=== PATIENT | female | born 1950 | race Caucasian/White ===

== ENCOUNTER 2023-06-21 15:36 | Outpatient (CLI) | payer MEDICARE, SELFPAY | END 2023-06-21 23:59 | LOC: RT 15:37 | PROVIDERS: PCP Nurse Practitioner; Visit Provider Nurse Practitioner Family | DX: R00.2 Palpitations (principal); R06.00 Dyspnea, unspecified; Z87.74 Personal history of (corrected) congenital malformations of heart and circulatory system; R60.0 Localized edema | CPT/HCPCS: 93270 ==

== ENCOUNTER 2023-09-20 06:11 | Outpatient (CLI) | payer MEDICARE, SELFPAY ==
--- NOTE | 2023-09-20 | CA_ITS ---
APPROVED REPORT Exam: Pharmacologic Technologist: Lolly Zhao, Ht: 5 ft 3 in Wt: 171 lbs BSA: 1.81 m2 HR: 58 bpm BP: 182/82 mmHg Rhythm: sinus bradycardia, low voltage QRS Medical History Medications: Lisinopril,,,,, Aspirin,,,,, Allopurinol,,,,, Pantoprazole,,,,, Metoprolol Succinate,,,,, TriaMterene,,,,, Potassium,,,,, Euthyrox,,,,, Cardiac Risk Factors: HTN Stress Test Details Test: LEXISCAN HR Resting HR: 58 bpm Max Heart Rate (APMHR): 149 bpm Max HR Achieved: 74 bpm Target HR (85% APMHR): 127 bpm % of APMHR: 50 Recovery HR: 67 bpm BP Resting BP: 182/82 mmHg Max BP: 207/81 mmHg Recovery BP: 167.0/82.0 mmHg ECG Resting ECG: sinus bradycardia, low voltage QRS Stress ECG: No significant ST changes Arrhythmia: None Clinical Exercise duration: 04:01 min Highest Stage Achieved: Exercise capacity: 1.0 METs Stress ECG Conclusion During lexiscan pt had no symptoms. No arrhythmias noted. No significant ST changes Conclusion: Unremarkable lexiscan stress. Myoview images reported separately. The patient was noted to have markedly elevated BP Test Summary REST . . . . . . . Sitting REST 15:58 . . 58 . 182/ 82 . . Stage 1 01:00 . . 71 . . . . Stage 2 01:00 . . 67 . 168/ 79 . . Stage 3 01:00 . . 64 . . . . Stage 4 01:00 . . 62 . 180/ 78 . . Stage 4 01:01 . . 62 . 180/ 78 . Stop exercise at 04:01 RECOVERY 01:00 . . 63 . 171/ 76 . . RECOVERY 02:00 . . 63 . 167/ 82 . . RECOVERY 03:00 . . 64 . 167/ 82 . . RECOVERY 04:00 . . 61 . 179/ 77 . . RECOVERY 04:18 . . 64 . 179/ 77 . . Electronically signed by : Rehana Dyer MD 09/25/2023 12:33:01
--- NOTE | 2023-09-20 06:15 | CA_ITS ---
APPROVED REPORT EXAM: Comprehensive 2D, Doppler, and color-flow Echocardiogram Dairy Chemist: Elda Zazueta CRT Ht: 5 ft 3 in Wt: 171lbs BSA: 1.81 BP: 138/75 mmHg Indications: Shortness of Breath, Palpitations, Fatigue, Peripheral Edema, Hypertension/HDD 2D Dimensions LA Volume 28.90 mL LA Volume Index 15.60 mL/m2 (M/F) 16-34 M-Mode Dimensions RVDd 2.96 cm (0.9-2.6) LA Diam 3.30 cm (1.9-4.0) LVDd 3.61 cm (3.5-5.7) LVDs 2.25 cm (3.5-5.7) IVSd 1.68 cm (0.6-1.1) PWd 0.86 cm (0.6-1.1) EF (Teich) 68.80% FS 37.70% EDV (Teich) 54.80 mL TAPSE 3.19 (<1.7) ESV (Teich) 17.10 mL LV Diastology E Decel Time 240 (160-240 msec) E/A Ratio 0.86 MED A' 8.60 cm/s LAT A' 12.80 cm/s Aortic Valve AI PHT 653.00 ms AO Peak GR. 4.70 mmHg Mitral Valve MV A Velocity 82.0 (40-130 cm/s) E/A Ratio 0.86 Pulmonary Valve PV Peak Velocity 94.0 (50-150 cm/s) Tricuspid Valve TR P. Velocity 260.00 cm/s RAP Estimate 10.00 mmHg RVSP 37.00 mmHg Left Ventricle The left ventricle is normal size. The left ventricular systolic function is normal. The left ventricular ejection fraction is within the normal range. Proximal septal thickening is noted. There is normal LV segmental wall motion. The left ventricular diastolic function is normal. LVEF is 55%. Right Ventricle Right ventricle is mildly dilated. The right ventricular systolic function is normal. Atria Left atrium is mildly dilated. Right atrium is mildly dilated. There is no Doppler evidence of interatrial shunt. Aortic Valve The aortic valve is mildly thickened. There is no aortic valvular stenosis. Mild aortic regurgitation. Mitral Valve The mitral valve leaflets are mildly thickened. No evidence of mitral valve stenosis. Mild mitral regurgitation. Tricuspid Valve The tricuspid valve leaflets are thin and pliable. Moderate tricuspid regurgitation. RVSP is 25-30 mmHg. Pulmonic Valve The pulmonary valve is normal in structure. Mild pulmonic regurgitation. Great Vessels The aortic root is normal in size. The ascending aorta is normal in size. IVC is normal in size and collapses >50% with inspiration. Pericardium There is no pericardial effusion. Other Information Study Quality: Fair Conclusion Normal biventricular systolic function. Mild RV dilation. Biatrial dilation. Mild AI, mild MR, mild WA. Moderate TR. Electronically signed by : Rehana Dyer MD 09/24/2023 17:59:08
--- OUTSIDE RECORDS SUMMARY | 2023-09-20 06:17 | XMS_ITS | Continuity of Care Document ---
Author Name Unknown Address [address] [place] [id number] Organization [facility] Phone Care Team Providers Care Ladle Handler Name Role Phone BRIDGETTE, PUSHPA E Unavailable Unavailable BRIDGETTE, PUSHPA E Admitting Unavailable BRIDGETTE, PUSHPA E Primary Attending Unavailable MAI VALENTIN Primary Care ALLERGIES AND ADVERSE REACTIONS ALLERGIES AND ADVERSE REACTIONS Code System Allergy Substance Adverse Reaction Date Reaction (Severity) Comment Status Reported By Updated By LATEX (Free Text Allergy) Adverse reaction to substance u active [id number] on September 06, 2023 11:38:40 PM UTC FAMILY HISTORY RELATION: Father Status: Cause of : Unknown Age at : Unknown SNOMED-CT Diagnosis Age At Onset [id number] Heart disease RELATION: Mother Status: LIVING SNOMED-CT Diagnosis Age At Onset [id number] Dementia RESULTS Patient: EDITA Antonio Date of : [birth year] LABORATORY RESULTS ORDER 100: RVP PANEL WITH CO VID 19 - BRBN (LOINC: 39029-6) ORDER DATE: September 06, 2023 11:44:00 PM UTC Specimen Source: Nasopharyng eal Specimen Type: Specimen from nasopharyngeal structure PERFORMING LAB: [address] [id number] Result Comment: Final Result Date: September 07, 2023 12:47:00 AM UTC (TECH: RJV) LOINC TEST [place] [address]-5 Adenovirus RNA [Pres ence] in Specimen by KYMBERLY with probe detection N NOT DETECTED NOT DETECTED September 07, 2023 12:47:00 AM UTC (TECH: RJV) 27810-6 Human coronavirus 22 9E RNA [Presence] in Nasopharynx by KYMBERLY with non-probe detection N NOT DETECTED NOT DETECTED September 07, 2023 12:47:00 AM UTC (TECH: RJV) 98542-3 Human coronavirus HK U1 RNA [Presence] in Nasopharynx by KYMBERLY with non-probe detection N NOT DETECTED NOT DETECTED September 07, 2023 12:47:00 AM UT (TECH: [facility] [employer]) 37323-6 Human coronavirus NL 63 RNA [Presence] in Nasopharynx by KYMBERLY with non-probe detection N NOT DETECTED NOT DETECTED September 07, 2023 12:47:00 AM UT (TECH: [facility]) 14277-7 Human coronavirus 229E+OC43 RNA [Presence] in Nasopharynx by KYMBERLY with probe detection N NOT DETECTED NOT DETECTED September 07, 2023 12:47:00 AM UTC (TECH: [facility]) 72815-5 SARS-CoV-2 (COVID-19 ) RNA [Presence] in Specimen by KYMBERLY with probe detection N NOT DETECTED NOT DETECTED August 272023 12:47:00 AM UT (TECH: [facility]) 10430-3 Human metapneumoviru s IgG Ab [Presence] in Serum N NOT DETECTED NOT DETECTED September 07, 2023 12:47:00 AM UT (TECH: [facility]) 31997-5 Rhinovirus+Enterovir us RNA [Presence] in Specimen by KYMBERLY with probe detection N NOT DETECTED NOT DETECTED August 272023 12:47:00 AM UT (TECH: [employer]) 31876-7 Influenza virus A Ab [Presence] in Serum N NOT DETECTED NOT DETECTED September 06 12:47:00 AM UT (TECH: [employer]) 58933-0 Influenza virus A+B Ab [Presence] in Serum N NOT DETECTED NOT DETECTED September 06 12:47:00 AM UT (TECH: [facility]) 01137-3 Parainfluenza virus 1 IgG Ab [Presence] in Serum N NOT DETECTED NOT DETECTED September 07, 2023 12:47:00 AM UTC (TECH: [employer]) 55406-2 Parainfluenza virus 2 IgG Ab [Presence] in Serum N NOT DETECTED NOT DETECTED September 07, 2023 12:47:00 AM UTC (TECH: [employer]) 53905-5 Parainfluenza virus 3 IgG Ab [Presence] in Serum N NOT DETECTED NOT DETECTED September 07, 2023 12:47:00 AM UTC (TECH: [facility]as[facility]) 40131-0 Parainfluenza virus 4 IgG Ab [Presence] in Serum by Immunoassay N NOT DETECTED NOT DETECTED September 07, 2023 12:47:00 AM UT (TECH: [facility]) 21092-1 Respiratory syncytia l virus A RNA [Presence] in Nasopharynx by KYMBERLY with probe detection N NOT DETECTED NOT DETECTED September 07, 2023 12:47:00 AM [facility] (TECH: Talasim) 07686-0 Bordetella parapertu ssis DNA [Presence] in Nasopharynx by KYMBERLY with probe detection N NOT DETECTED NOT DETECTED September 07, 2023 12:47:00 AM [facility] ([facility]: Talasim) 19110-5 Bordetella pertussis DNA [Presence] in Specimen by KYMBERLY with probe detection N NOT DETECTED NOT DETECTED August 272023 12:47:00 AM [facility] ([facility]: Talasim) 11420-9 Chlamydophila pneumo niae DNA [Presence] in Specimen by KYMBERLY with probe detection N NOT DETECTED NOT DETECTED September 07, 2023 12:47:00 AM UT (TECH: [facility]) 55582-2 Mycoplasma pneumonia e Ab [Presence] in Serum N NOT DETECTED NOT DETECTED September 06 12:47:00 AM [facility] (TECH: [facility]) LABORATORY NARRATIVE RESULTS Information is not available RADIOLOGY RESULTS Information is not available PATHOLOGY NARRATIVE RESULTS Information is not available MICROBIOLOGY RESULTS No Micro Labs/Results Exist for Patient BLOOD ADMIN RESULTS Information is not available MEDICATIONS HOME MEDICATIONS Status RXNORM NDC Medication Dose Route Frequency Dates Comments Reported By Updated By Drug Treatment Unknown DISCHARGE MEDICATIONS Status RXNORM NDC Medication Dose Route Frequency Dates Comments Physician Updated By No Discharge Medication Info rmation Available INPATIENT MEDICATIONS Status RXNORM NDC Medication Dose Route Frequency Rat e Quantity Dates Comments Physician Updated By No Inpatient Medication Info rmation Available SOCIAL HISTORY SOCIAL HISTORY SNOMED-CT Social History Element Description Effective Dates Offered Cessation Comment UpdatedBy [id number] Historical Tobacco smoking status Never Smoked Yes [id number] on September 21, 2018 2:58:33 PM [facility] SOCIAL HISTORY - Gender Sex: Female SOCIAL HISTORY - Status : status i nformation is not available Intention in Next Year: intention information is not available SOCIAL HISTORY - Sexual Behavior Sexual Orientation Gender Identity SNOMED-CT Description SNO MED -CT Description Activity Level No of Partners Partner Type UpdatedBy Information is not available VITAL SIGNS PATIENT VITAL SIGNS This section displays the mo st recent value for each vital sign as of September 08, 2023 12:38:17 PM UTC Loinc Code Vital Sign Activity Date Result Updated By 8310-5 Body temperature September 06, 2023 11:34:37 PM UTC 98.0 [degF] [id number] on September 08, 2023 1:02:21 AM UTC 8462-4 Diastolic blood pressure September 07, 2023 1:00:53 AM UTC 77.0 mm[Hg] [id number] on September 08, 2023 1:02:23 AM UTC 8867-4 Heart rate September 07, 2023 1:00:53 AM UTC 60 /min [id number] on September 08, 2023 1:02:23 AM UTC 44603-8 Oxygen saturation in Arterial blood by Pulse oximetry September 07, 2023 1:00:53 AM UTC 99.0 % [id number] on September 08, 2023 1:02:23 AM UTC 9279-1 Respiratory rate September 07, 2023 1:00:53 AM UTC 18 /min [id number] on September 08, 2023 1:02:23 AM UTC 8480-6 Systolic blood pressure August 1:00:53 AM UTC 189.0 mm[Hg] [id number] on September 08, 2023 1:02:23 AM UT PEDIATRIC GROWTH CHART - VITAL SIGNS This section displays Head C ircumference Percentile, Weight for Length Percentile and BMI Percentile Loinc Code Pediatric Measure Age (Months) Result Updat ed By No Pediatric Growth Chart Pe rcentile Information Available. HEALTH CONCERNS Problems Concern Status Health Concern problem infor mation not available. Smoking Status Status Years Used Consumed packs p er day Health Concern smoking histo ry information not available. Family History Concern Status Health Concern family histor y information not available. ENCOUNTERS ENCOUNTER INFORMATION Reason for Visit SORE THROAT Admission September 06, 2023 11:15:00 PM UTC [address] [address] Discharge September 07, 2023 1:02:00 AM UTC DI SCHARGED TO HOME OR SELF CARE ENCOUNTER DIAGNOSES Notes information is not olivia ilable. Code System Diagnosis Onset Date Diagnosis information is not available. ABSTRACT DIAGNOSES Code System Diagnosis Updated By J02.9 ICD10 ACUTE PHARYNGITIS, UNSPECIFI ED [id number] on September 08, 2023 12:37:57 PM UTC B34.9 ICD10 VIRAL INFECTION, UNSPECIFIED [id number] on September 08, 2023 12:37:57 PM UTC I10 ICD10 ESSENTIAL (PRIMARY) HYPERTEN JOHN [id number] on September 08, 2023 12:37:57 PM UTC Z11.52 ICD10 ENCOUNTER FOR SCREENING FOR COVID-19 [id number] on September 08, 2023 12:37:57 PM UTC Z91.040 ICD10 LATEX ALLERGY STATUS [id number] on September 08, 2023 12:37:57 PM UTC CARE TEAM Care Ladle Handler Role PUSHPA ANGELES Referring PUSHPA ANGELES Admitting PUSHPA ANGELES Primary Attending MAI VALENTIN Primary Care CARE TEAM CARE clearing distribution clerk Role on Team Status Start Date End Date Update d By BRIDGETTE Leal MD Referring normal September 05 11:46:09 PM UT September 06, 2023 4:00:00 AM UTC [id number] on September 06, 2023 11:46:09 PM UT BRIDGETTE Leal MD Attending normal September 05 11:46:08 PM UT September 06, 2023 4:00:00 AM UTC [id number] on September 06, 2023 11:46:09 PM UT BRIDGETTE Leal MD Admitting normal September 05 11:46:08 PM UT September 06, 2023 4:00:00 AM UTC [id number] on September 06, 2023 11:46:09 PM UT HOMERO ONEILL APRN PCP normal September 06, 2023 11:16:40 PM UTC September 06, 2023 4:00:00 AM UTC [id number] on September 06, 2023 11:46:09 PM UTC
--- OUTSIDE RECORDS SUMMARY | 2023-09-20 06:17 | XMS_ITS | Continuity of Care Document ---
Author Name Unknown Address [address] [place] [phone] Organization [facility] Phone Care Team Providers Care Bread Panner Name Role Phone MAI VALENTIN Primary Care MAI VALENTIN Unavailable MAI VALENTIN Primary Attending MAI VALENTIN Admitting ALLERGIES AND ADVERSE REACTIONS ALLERGIES AND ADVERSE REACTIONS Code System Allergy Substance Adverse Reaction Date Reaction (Severity) Comment Status Reported By Updated By LATEX (Free Text Allergy) Adverse reaction to substance u active [id number] on March 30, 2021 10:22:24 PM [facility] FAMILY HISTORY RELATION: Father Status: Cause of : Unknown Age at : Unknown SNOMED-CT Diagnosis Age At Onset [id number] Heart disease RELATION: Mother Status: LIVING SNOMED-CT Diagnosis Age At Onset [id number] Dementia RESULTS Patient: EDITA Antonio Date of : January [birth year] LABORATORY RESULTS Information is not available LABORATORY NARRATIVE RESULTS Information is not available RADIOLOGY RESULTS ORDER 200: SCREEN MAMMO W CA D BILAT (LOINC: 02008-1) ORDER DATE: June 26, 2023 4:31:00 PM [facility] PERFORMING LAB: [address] [id number] Final Result Date: May 302023 4:40:[address] [place] [address] Name: TREVOR KOHLER Exam Date: 06/26/2023 : 1950 Age 73 years Gender: F Physician: MAI VALENTIN Facility: [facility] Facility HSV: Outpatient Exam: SCREEN MAMMO W CAD BILAT MAMMOGRAM SCREENING BILATERAL WITH TOMOSYNTHESIS HISTORY: Routine screening exam COMPARISON: February 24, 2022 FINDINGS: Standard views were obtained. There are scattered fibroglandular densities. No mass, suspicious calcifications or architectural distortion is present. IMPRESSION: No mammographic evidence of malignancy. BI-RADS 1: Negative. RECOMMENDATION: Annual mammography CAD was utilized during interpretation. The patient will be sent a letter from the mammography department with their mammography findings. Dictated By: LACY GEE Transcribed By: LACY GEE Transcribed On: 06/26/2023 11:40 AM Electronically signed by: LACY GEE 06/26/2023 Thank you for referring EDITA TREVOR to [facility]. Legally authenticated by POPE LACY Galicia DO 2023-06-26 11:40:09 PATHOLOGY NARRATIVE RESULTS Information is not available MICROBIOLOGY RESULTS No Micro Labs/Results Exist for Patient BLOOD ADMIN RESULTS Information is not available MEDICATIONS HOME MEDICATIONS Status RXNORM Medication Dose Route Frequency Dates Comments R eported By Updated By Drug Treatment Unknown DISCHARGE MEDICATIONS Status RXNORM Medication Dose Route Frequency Dates Comments Physic roland Updated By No Discharge Medication Info rmation Available INPATIENT MEDICATIONS Status RXNORM Medication Dose Route Frequency Rate Quantity Dates Comments Physician Updated By No Inpatient Medication Info rmation Available SOCIAL HISTORY SOCIAL HISTORY SNOMED-CT Social History Element Description Effective Dates Offered Cessation Comment UpdatedBy [id number] Historical Tobacco smoking status Never Smoked Yes [id number] on September 21, 2018 2:58:33 PM [facility] SOCIAL HISTORY - Gender Sex: Female SOCIAL HISTORY - Sexual Behavior Sexual Orientation Gender Identity SNOMED-CT Description SNO MED -CT Description Activity Level No of Partners Partner Type UpdatedBy Information is not available HEALTH CONCERNS Problems Concern Status Health Concern problem infor mation not available. Smoking Status Status Years Used Consumed packs p er day Health Concern smoking histo ry information not available. Family History Concern Status Health Concern family histor y information not available. ENCOUNTERS ENCOUNTER INFORMATION Reason for Visit SCR LEILA Admission June 26, 2023 4:08:[address] [address] Discharge June 27, 2023 4:08:00 AM [facility] DISCHARGED TO HOME OR SELF CARE ENCOUNTER DIAGNOSES Notes information is not olivia ilable. Code System Diagnosis Onset Date Diagnosis information is not available. ABSTRACT DIAGNOSES Code System Diagnosis Updated By Z12.31 ICD10 ENCOUNTER FOR SC REENING MAMMOGRAM FOR MALIGNANT NEOPLASM OF BREAST [id number] on June 23, 2023 7:25:01 PM [facility] CARE TEAM Care Bread Panner Role MAI VALENTIN Primary Care MAI VALENTIN Referring MAI VALENTIN Primary Attending MAI VALENTIN Admitting CARE TEAM CARE journalism internship Role on Team Status Start Date End Date Update d By HOMERO ONEILL APRN PCP normal June 26, 2023 4:10:49 PM [place] June 27, 2023 4:08:00 AM [facility] [id number] on June 26, 2023 4:10:49 PM [facility] LISA GOLD PCP normal May 7:25:01 PM [facility] June 26, 2023 4:10:49 PM [facility] [id number] on June 26, 2023 4:10:49 PM [facility] HOMERO ONEILL APRN Referring normal June 23, 2023 7:25:01 PM [place] June 27, 2023 4:08:00 AM [facility] [id number] on June 26, 2023 4:10:49 PM [facility] HOMERO ONEILL APRN Attending normal June 23, 2023 7:25:01 PM [facility] June 27, 2023 4:08:00 AM [facility] [id number] on June 26, 2023 4:10:49 PM [facility] HOMERO ONEILL APRN Admitting normal June 23, 2023 7:25:01 PM [facility] June 27, 2023 4:08:00 AM [facility] [id number] on June 26, 2023 4:10:49 PM [facility]
--- OUTSIDE RECORDS SUMMARY | 2023-09-20 06:17 | XMS_ITS | Continuity of Care Document ---
Author Name Unknown Address [address] [place] [phone] Organization [facility] Phone Care Team Providers Care Nursing Home Physician Name Role Phone BRIDGETTE, PUSHPA E Unavailable Unavailable BRIDGETTE, PUSHPA E Admitting Unavailable BRIDGETTE, PUSHPA E Primary Attending Unavailable MAI VALENTIN Primary Care ALLERGIES AND ADVERSE REACTIONS ALLERGIES AND ADVERSE REACTIONS Code System Allergy Substance Adverse Reaction Date Reaction (Severity) Comment Status Reported By Updated By LATEX (Free Text Allergy) Adverse reaction to substance u active [id number] on September 06, 2023 11:38:40 PM UTC FAMILY HISTORY RELATION: Father Status: Cause of : Unknown Age at : Unknown SNOMED-CT Diagnosis Age At Onset [id number] Heart disease RELATION: Mother Status: LIVING SNOMED-CT Diagnosis Age At Onset [id number] Dementia RESULTS Patient: EDITA Antonio Date of : [birth year] LABORATORY RESULTS ORDER 100: RVP PANEL WITH CO VID 19 - BRBN (LOINC: 64123-1) ORDER DATE: September 06, 2023 11:44:00 PM UTC Specimen Source: Nasopharyng eal Specimen Type: Specimen from nasopharyngeal structure PERFORMING LAB: [address] [id number] Result Comment: Final Result Date: September 07, 2023 12:47:00 AM UTC (TECH: RJV) LOINC TEST [place] [address]-9 Adenovirus RNA [Pres ence] in Specimen by KYMBERLY with probe detection N NOT DETECTED NOT DETECTED September 07, 2023 12:47:00 AM UTC (TECH: RJV) 75116-3 Human coronavirus 22 9E RNA [Presence] in Nasopharynx by KYMBERLY with non-probe detection N NOT DETECTED NOT DETECTED September 07, 2023 12:47:00 AM UTC (TECH: RJV) 64964-1 Human coronavirus HK U1 RNA [Presence] in Nasopharynx by KYMBERLY with non-probe detection N NOT DETECTED NOT DETECTED September 07, 2023 12:47:00 AM UT (TECH: AsantiV) 36388-6 Human coronavirus NL 63 RNA [Presence] in Nasopharynx by KYMBERLY with non-probe detection N NOT DETECTED NOT DETECTED September 07, 2023 12:47:00 AM UT (TECH: BiancaMed) 61692-2 Human coronavirus 229E+OC43 RNA [Presence] in Nasopharynx by KYMBERLY with probe detection N NOT DETECTED NOT DETECTED September 07, 2023 12:47:00 AM UTC (TECH: BiancaMed) 21265-9 SARS-CoV-2 (COVID-19 ) RNA [Presence] in Specimen by KYMBERLY with probe detection N NOT DETECTED NOT DETECTED August 272023 12:47:00 AM UT (TECH: [facility]caMed) 56420-6 Human metapneumoviru s IgG Ab [Presence] in Serum N NOT DETECTED NOT DETECTED September 07, 2023 12:47:00 AM UT (TECH: [facility]ca[facility]) 43240-7 Rhinovirus+Enterovir us RNA [Presence] in Specimen by KYMBERLY with probe detection N NOT DETECTED NOT DETECTED August 272023 12:47:00 AM UT (TECH: AsantiV) 25007-1 Influenza virus A Ab [Presence] in Serum N NOT DETECTED NOT DETECTED September 06 12:47:00 AM UT (TECH: AsantiV) 24590-3 Influenza virus A+B Ab [Presence] in Serum N NOT DETECTED NOT DETECTED September 06 12:47:00 AM UT (TECH: [facility]) 23483-8 Parainfluenza virus 1 IgG Ab [Presence] in Serum N NOT DETECTED NOT DETECTED September 07, 2023 12:47:00 AM UTC (TECH: AsantiV) 81604-1 Parainfluenza virus 2 IgG Ab [Presence] in Serum N NOT DETECTED NOT DETECTED September 07, 2023 12:47:00 AM UTC (TECH: AsantiV) 20819-4 Parainfluenza virus 3 IgG Ab [Presence] in Serum N NOT DETECTED NOT DETECTED September 07, 2023 12:47:00 AM UTC (TECH: [facility]ca[facility]) 50116-6 Parainfluenza virus 4 IgG Ab [Presence] in Serum by Immunoassay N NOT DETECTED NOT DETECTED September 07, 2023 12:47:00 AM UT (TECH: [facility]) 58978-1 Respiratory syncytia l virus A RNA [Presence] in Nasopharynx by KYMBERLY with probe detection N NOT DETECTED NOT DETECTED September 07, 2023 12:47:00 AM [facility] (TECH: BiancaMed) 92408-3 Bordetella parapertu ssis DNA [Presence] in Nasopharynx by KYMBERLY with probe detection N NOT DETECTED NOT DETECTED September 07, 2023 12:47:00 AM [facility] ([employer]: [facility]ca[facility]) 82252-7 Bordetella pertussis DNA [Presence] in Specimen by KYMBERLY with probe detection N NOT DETECTED NOT DETECTED August 272023 12:47:00 AM [facility] ([employer]: [employer]) 84733-0 Chlamydophila pneumo niae DNA [Presence] in Specimen by KYMBERLY with probe detection N NOT DETECTED NOT DETECTED September 07, 2023 12:47:00 AM UT (TECH: [employer]) 50878-5 Mycoplasma pneumonia e Ab [Presence] in Serum N NOT DETECTED NOT DETECTED September 06 12:47:00 AM [facility] (TECH: [facility]) LABORATORY NARRATIVE RESULTS Information is not available [...] Description Effective Dates Offered Cessation Comment UpdatedBy [id number] Historical Tobacco smoking status Never Smoked Yes [id number] on September 21, 2018 2:58:33 PM [facility] SOCIAL HISTORY - Gender Sex: Female SOCIAL [...] for each vital sign as of September 07, 2023 2:07:08 AM UTC Loinc Code Vital Sign Activity Date Result Updated By 8310-5 Body temperature September 06, 2023 11:34:00 PM UTC 98.0 [degF] [id number] on September 06, 2023 11:36:32 PM UTC 8462-4 Diastolic blood pressure September 07, 2023 1:00:00 AM UTC 77.0 mm[Hg] [id number] on September 07, 2023 1:01:24 AM UTC 8867-4 Heart rate September 07, 2023 1:00:00 AM UTC 60 /min [id number] on September 07, 2023 1:01:24 AM UTC 20355-1 Oxygen saturation in Arterial blood by Pulse oximetry September 07, 2023 1:00:00 AM UTC 99.0 % [id number] on September 07, 2023 1:01:24 AM UTC 9279-1 Respiratory rate September 07, 2023 1:00:00 AM UTC 18 /min [id number] on September 07, 2023 1:01:24 AM UTC 8480-6 Systolic blood pressure August 1:00:00 AM UTC 189.0 mm[Hg] [id number] on September 07, 2023 1:01:24 AM [place] PEDIATRIC GROWTH CHART - VITAL [...] September 06, 2023 11:15:00 PM UTC [address] [id number] Discharge September 07, 2023 1:02:00 AM UTC DI SCHARGED TO HOME OR SELF CARE ENCOUNTER DIAGNOSES Notes information is not olivia ilable. Code System Diagnosis Onset Date Diagnosis information is not available. ABSTRACT DIAGNOSES Code System Diagnosis Updated By Abstract Diagnosis informati on is not available. 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 Role on Team Status Start Date End Date Update d By BRIDGETTE Leal MD Referring normal September 05 11:46:09 PM UT September 07, 2023 1:02:00 AM UT [id number] on September 06, 2023 11:46:09 PM UT BRIDGETTE Leal MD Attending normal September 05 11:46:08 PM UT September 07, 2023 1:02:00 AM [facility] [id number] on September 06, 2023 11:46:09 PM UT BRIDGETTE Leal MD Admitting normal September 05 11:46:08 PM UT September 07, 2023 1:02:00 AM UT [id number] on September 06, 2023 11:46:09 PM [facility] HOMERO ONEILL APRN PCP normal September 06, 2023 11:16:40 PM UT September 07, 2023 1:02:00 AM UT [id number] on September 06, 2023 11:46:09 PM [facility]
--- OUTSIDE RECORDS SUMMARY | 2023-09-20 06:17 | XMS_ITS | Continuity of Care Document ---
Author Name Unknown Address [address] [place] [phone] Organization [facility] Phone Care Team Providers Care Block Inspector Name Role Phone MAI VALENTIN Primary Care MAI VALENTIN Unavailable MAI VALENTIN Primary Attending MAI VALENTIN Admitting ALLERGIES AND ADVERSE REACTIONS ALLERGIES AND ADVERSE REACTIONS Code System Allergy Substance Adverse Reaction Date Reaction (Severity) Comment Status Reported By Updated By LATEX (Free Text Allergy) Adverse reaction to substance u active [id number] on March 30, 2021 10:22:[address] [facility] FAMILY HISTORY RELATION: Father Status: Cause of : Unknown Age at : Unknown SNOMED-CT Diagnosis Age At Onset [id number] Heart disease RELATION: Mother Status: LIVING SNOMED-CT Diagnosis Age At Onset [id number] Dementia RESULTS Patient: EDITA Antonio Date of : January [birth year] LABORATORY RESULTS Information is not available LABORATORY NARRATIVE RESULTS Information is not available RADIOLOGY RESULTS ORDER 200: SCREEN MAMMO W CA D BILAT (LOINC: 62696-0) ORDER DATE: June 26, 2023 4:31:[address] [facility] PERFORMING LAB: [address] [id number] Final Result Date: May 302023 4:40:[address] [place] [address] Name: TREVOR KOHLER Exam Date: 06/26/2023 : 1950 Age 73 years Gender: F Physician: MAI VALENTIN Facility: [facility] Facility HSV: Outpatient Exam: SCREEN MAMMO W [...] Thank you for referring EDITA TREVOR to [facility]. Legally authenticated by POPE LACY [...] Description Effective Dates Offered Cessation Comment UpdatedBy [id number] Historical Tobacco smoking status Never Smoked Yes [id number] on September 21, 2018 2:58:[address] [facility] SOCIAL HISTORY - Gender Sex: Female [...] LEILA Admission June 26, 2023 4:08:[address] [id number] Discharge June 27, 2023 4:08:[address] [facility] DISCHARGED TO HOME OR SELF CARE ENCOUNTER DIAGNOSES Notes information is not olivia ilable. Code System Diagnosis Onset Date Diagnosis information is not available. 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 LISA GOLD PCP normal May 7:25:[address] [facility] June 26, 2023 4:10:49 PM UT [id number] on June 26, 2023 4:10:[address] [facility] HOMERO ONEILL APRN Referring normal June 23, 2023 7:25:01 PM UT June 26, 2023 5:00:00 AM UT [id number] on June 26, 2023 4:10:[address] [facility] HOMERO ONEILL APRN Attending normal June 23, 2023 7:25:[address] [facility] June 26, 2023 5:00:00 AM UT [id number] on June 26, 2023 4:10:[address] [facility] HOMERO ONEILL APRN Admitting normal June 23, 2023 7:25:[address] [facility] June 26, 2023 5:00:00 AM UT [id number] on June 26, 2023 4:10:[address] [facility]
--- NOTE | 2023-09-20 06:34 | NM_ITS ---
APPROVED REPORT Exam: Nuclear Stress Test Indication: SOB, Syncope, Fatigue, HTN, Family history Patient Location: Outpatient Stress Tech: Lolly Zhao NM Tech:Ariana Murillo, ARRT, RT (R)(N) Ht: 5 ft 4 in Wt: 168 lbs Bra Size: 38C HR: 58 bpm BP: 182/82 mmHg BSA: 1.82 m2 TID: 1.19 BMI: 28.8 History: SOB, Syncope, Fatigue, HTN, Family history Procedure: Patient received 0.4 mg of intravenous Lexiscan, resting heart rate 58 bpm, resting blood pressure 182/82 mmHg, with Lexiscan maximum heart rate achieved was 74 bpm which is % of the maximum predicted heart rate and blood pressure was 207/81 mmHg. With Lexiscan, patient denied any complaint of chest pain. Cardiac Stress and Resting SPECT Images: Cardiac Stress and Resting SPECT images were obtained using technetium 99m Myoview 31.4 mCi stress and 10.59 mCi at rest. Resting and stress imaging in supine and prone positions demonstrate no evidence of fixed or reversible perfusion defects. Gated imaging demonstrates normal global and regional LV systolic function. LVEF is calculated at > 75%. Conclusion: No evidence of fixed or reversible perfusion defects. Gated imaging demonstrates normal global and regional LV systolic function. LVEF is calculated at > 75%. Of note patient had markedly elevated BP at baseline during stress testing. BP control is recommended. Electronically signed by : Rehana Dyer MD 09/25/2023 12:35:37
[2023-09-20] MEDS: REGADENOSON 0.4MG/5ML SYRINGE 0.400000000000000022 MG IV (08:52)
[2023-09-20] MEDS: SODIUM CHLORIDE 0.9% 10ML SYR (RAD ONLY) 10 ML IV ×2 (08:52)
[2023-09-20] MEDS: ISOTOPE MYOVIEW (PER STUDY) 1 DOSE IV (08:53)
== END 2023-09-20 23:59 | disposition home or self-care (01) ==
LOC: RAD 06:15
PROVIDERS: PCP Nurse Practitioner; Visit Provider Nurse Practitioner Family
DX: R06.00 Dyspnea, unspecified; R00.2 Palpitations; Z87.74 Personal history of (corrected) congenital malformations of heart and circulatory system; R60.0 Localized edema
CPT/HCPCS: 78452; 93017; 93018; 93306; A9502; J2785

== ENCOUNTER 2024-04-29 10:02 | Outpatient (CLI) | payer MEDICARE, SELFPAY ==
--- OUTSIDE RECORDS SUMMARY | 2024-04-29 10:04 | XMS_ITS | Encounter Summary ---
Author Organization [facility] yste Address [address] [place] [address] Care Team Providers Care Career Portals Teacher Name Role Phone Jo Ann Byrd [employer] Primary Care Provider [phone] Reason for Visit * Reason Onset Date Comments New Med Request 04/12/2024 Encounter Details Date Type Department Care Team (Late st Contact Info) Description 04/12/2024 Telephone [facility] [address] [place] [phone] Jo Ann Byrd, [employer] [address] [place] [address] New Med Request Social History Tobacco Use Types Packs/Day Years Used Date Smoking Tobacco: Never Smokeless Tobacco: Never Alcohol Use Standard Drinks/Week Comments Never 0 (1 standard drink = 0.6 oz pur e alcohol) PHQ-2 Answer Date Recorded Retired PHQ-9: Brief Depression Severity Measure Score 0 12/30/2022 PHQ-2 Answer Date Recorded Retired PHQ-9: Brief Depression Severity Measure Score 0 09/12/2023 Comments Unknown Sex and Gender Information Value Date Recorded Sex Assigned at Not on file Legal Sex Female 10:58 AM EDT Gender Identity Not on file Sexual Orientation Not on file documented as of this encounter Miscellaneous Notes * Telephone Encounter - Brandi Diaz MA - 04/12/2024 4:13 PM EST Called and spoke with patient and she wants to make an appointment * Telephone Encounter - Efra Anderson RegSched Rep - 04/12/2024 2:02 PM EST Caller: Sharri Lawrence Relationship: Self Best call back number: [phone] What medication are you requesting: MAYBE A STEROID What are your current symptoms: INFECTION IN LEG How long have you been experiencing symptoms: SINCE LAST MONDAY Have you had these symptoms before: [x] Yes [] No Have you been treated for these symptoms before: [x] Yes [] No If a prescription is needed, what is your preferred pharmacy and phone number: [facility] [address] [place] [address] [facility] [phone] FX documented in this encounter Plan of Treatment Not on file documented as of this encounter Visit Diagnoses Not on filedocumented in this encounter Care Teams Career Portals Teacher Relationship Specialty Start Date End Date Jo Ann Byrd APRN [address] [place] [address] PCP - General Family Medicine 12/30/22 documented as of this encounter
--- OUTSIDE RECORDS SUMMARY | 2024-04-29 10:04 | XMS_ITS | Encounter Summary ---
[facility] Address [address] [place] [address] Care Team Providers Care Lollypop Machine Operator Name Role Phone Jo Ann Byrd [employer] Primary Care Provider [phone] Reason for Visit * Reason Onset Date Comments Med Refill 04/02/2024 Encounter Details Date Type Department Care Team (Late st Contact Info) Description 04/02/2024 Refill [facility] [address] [place] [phone] Jo Ann Byrd, MARGIN TRIMMER [address] [place] [address] Social History Tobacco Use Types Packs/Day Years [...] encounter Miscellaneous Notes * Telephone Encounter - Nj Mata RegSched Rep - 04/02/2024 10:50 AM EST Caller: Sharri Lawrence Relationship: Self Best call back number: [phone] Requested Prescriptions: Requested Prescriptions Pending Prescriptions Disp Refills triamterene-hydrochlorothiazide (MAXZIDE) 75-50 MG per tablet Sig: Take 0.5 tablets by mouth Daily. Pharmacy where request should be sent: [facility] [address] [place] [address] - [phone] [facility] [phone] FX Last office visit with prescribing clinician: 03/07/2024 Last telemedicine visit with prescribing clinician: Visit date not found Next office visit with prescribing clinician: Visit date not found Additional details provided by patient: PATIENT IS COMPLETELY OUT OF THIS MEDICATION Does the patient have less than a 3 day supply: [x] Yes [] No Would you like a call back once the refill request has been completed: [] Yes [x] No If the office needs to give you a call back, can they leave a voicemail: [] Yes [x] No Saleem Sahni Rep 04/02/24 10:51 EST documented in this encounter Plan of Treatment Not on file documented as of this encounter Visit Diagnoses Not on filedocumented in this encounter Care Teams Lollypop Machine Operator Relationship Specialty Start Date End Date Jo Ann Byrd APRN [address] [place] [address] PCP - General Family Medicine 12/30/22 documented as of this encounter
--- OUTSIDE RECORDS SUMMARY | 2024-04-29 10:04 | XMS_ITS | Clinical Summary ---
[facility] Address [address] [place] [address] Care Team Providers Care Retail Route Supervisor Name Role Phone Jo Ann Byrd Yuliet ZAMORA Primary Care Provider Allergies Active Allergy Reactions Criticality Noted Date Comments Latex Rash Low 12/30/2022 Medications allopurinol (ZYLOPRIM) 300 MG tablet Take 1 tablet by mouth Daily. 90 tablet 1 4 Active metoprolol succinate XL (TOPROL-XL) 25 MG 24 hr tablet Take 1 tablet by mouth Daily. 90 tablet 1 4 Active aspirin 81 MG EC tablet Take 1 tablet by mouth Daily. 90 tablet 1 4 Active lisinopril (PRINIVIL,ZESTR IL) 10 MG tablet Take 1 tablet by mouth Daily. 90 tablet 1 4 Active potassium chloride (KLOR-CON M20) 20 MEQ CR tablet Take 1 tablet by mouth Daily. 90 tablet 1 4 Active triamcinolone (KENALOG) 0.1 % ointment Apply topically to the appropriate area as directed 2 (Two) Times a Day. 3 each 1 4 Active levothyroxine (SYNTHROID, LEVOTHROID) 75 MCG tablet Take 1 tablet by mouth Daily. 90 tablet 2 4 Active pantoprazole (PROTONIX) 40 MG EC tabletIndicatio ns:Gastroesopha geal reflux disease without esophagitis Take 1 tablet by mouth twice daily 180 tablet 1 4 Active triamterene-hyd rochlorothiazid e (MAXZIDE) 75-50 MG per tablet Take 0.5 tablets by mouth Daily. 15 tablet 2 4 Active triamterene-hyd rochlorothiazid e (MAXZIDE) 75-50 MG per tablet Take 0.5 tablets by mouth Daily. 024 Discontin ued(Reord er) Active Problems Problem Noted Date Diagnosed Date Varicose veins of bilateral lower extremities wi th pain 04/15/2024 Assessment & Plan (04/17/2024 5:09 PM EST): Patient has well-documented history of issues with varicose veins of the bilateral lower extremities. SHe has had episodes of rupture . With past episodes she has also been noted to have superficial thrombophlebitis as well. Patient states her current episode has actually resolved at the time of evaluation but she felt it would best to come and have it evaluated. No concerning findings on physical exam today, however with past history of thrombophlebitis will send for left lower extremity duplex to rule out any underlying DVT issues. We discussed referral to vascular that she declines at this time but will keep in mind Hamstring strain, left, initial encounter 2023 Assessment & Plan (03/12/2024 3:41 PM EDT): Appears the patient suffered a right hamstring sprain or strain while doing a lot of physical labor in preparation for a yard sale. Her issue responded well to cold compress and NSAID therapy at home. No concerning lingering findings on physical exam, patient states that her numbness and aching have completely resolved. If issues should return would benefit from ultrasound given history of DVT. History of esophageal stricture 11/29/2023 Assessment & Plan (12/01/2023 8:03 AM EDT): presents today for issues with indigestion for a week or week and a half. She has been having issues swallowing as well. She feels like food is getting stuck in her throat, very predominant with bread, patient states that she does not eat very much meat. She has required esophageal dilatation during EGD on 3 previous occasions. -Refer to Dr. Steele Medicare annual wellness visit, subsequent 09/11 Assessment & Plan (09/12/2023 1:29 PM EDT): Patient up to date on mammography and colon cancer screening. She continues to be followed regularly by Dr. Montez, Cardiology after undergoing repair of interatrial septal defect approximately 10 years ago. Declines any updated vaccinations including COVID, Tdap, RSV or shingles. He has no complaints or concerns today Gastroesophageal reflux disease without esophagi tis 09/12/2023 Assessment & Plan (12/01/2023 8:02 AM EDT): presents today for issues with indigestion for a week or week and a half. She has been having issues swallowing as well. She feels like food is getting stuck in her throat, very predominant with bread, patient states that she does not eat very much meat. Describes her indigestion as feelings of heartburn and epigastric bubbling sensation. She states that she has always been a water drinker, but recently even water is making her nauseous. She is currently utilizing pantoprazole 40 mg once daily. She Has required esophageal dilatation during EGD on 3 previous occasions. Patient denies any vomiting, diarrhea, abdominal pain, chest pain or shortness of breath. No epigastric or abdominal tenderness on palpation, no abnormal physical exam findings. -Temporarily increase patient's pantoprazole to 40 mg twice daily -Has been treated by Dr. Astorga in the past who is currently not practicing, will refer to Dr. Steele for likely EGD in regards to feelings of possible dysphagia as well Assessment & Plan (09/12/2023 1:29 PM EDT): Well-controlled with daily pantoprazole Muscle cramps 02/14/2023 Assessment & Plan (02/15/2023 8:12 AM EDT): presents today for nocturnal muscle cramps. Patient noticed waking up with bilateral cramping of calf muscles in the middle the night approximately 1 to 2 months ago. This coincided with increased physical labor she had been doing due to her being down his back. The cramping is always at night during sleep, no pain or discomfort with long periods of standing or walking. No swelling or erythema of bilateral lower extremities. She denies any occurrence chest pain or shortness of breath. During our visit she endorses drinking predominantly Mtn Dew, not much water intake even on hotter days when she is outside working in the yard. She does not take any daily supplements. Normal physical exam -We will check electrolytes in office today. Will likely benefit from magnesium supplement for nocturnal muscle cramping. Also advised to cut back on Mountain Dew intake and implement more water to maintain hydration. Interatrial septal defect 01/02/2023 Assessment & Plan (09/12/2023 1:30 PM EDT): Followed by Dr. Montez, underwent repair approximately 10 years ago Assessment & Plan (01/02/2023 8:51 PM EDT): Underwent surgical [place] [address] Atkins Primary hypertension 12/30/2022 Assessment & Plan (03/12/2024 3:42 PM EDT): Blood pressure exhibiting a's control on current medications, 116/74. Continue lisinopril 10 mg daily and metoprolol 25 mg daily. Patient also to continue triamterene/HCTZ 70-50 mg half tablet daily Assessment & Plan (09/12/2023 1:22 PM EDT): Blood pressure well controlled, 122/68 in office today -Continue metoprolol XL 25mg daily Assessment & Plan (04/17/2023 3:03 PM EST): Blood pressure exhibiting excellent control in office today, 114/74. -Continue lisinopril 10 mg -Continue metoprolol XL 25 mg daily Assessment & Plan (02/15/2023 8:11 AM EDT): Blood pressure continues to exhibit excellent control on home log, her blood pressure is elevated in office today, 162/88. This is attributed to the fact that she forgot her medications yesterday and has not taken medication this morning. -Continue lisinopril 10 mg once daily -Continue metoprolol XL 25 mg once daily -Advised to monitor blood pressure at home to ensure it is remaining well controlled at all times when she remembers to take her medication, also reinforced importance of med compliance Assessment & Plan (01/02/2023 8:45 PM EDT): Blood pressure exhibiting excellent control on current medications. -Continue lisinopril 10mg daily -Continue metoprolol 25mg daily Acquired hypothyroidism 12/30/2022 Assessment & Plan (09/12/2023 1:20 PM EDT): Patient historically well-controlled on levothyroxine 75 mcg daily. Will recheck TSH level today Assessment & Plan (01/02/2023 8:55 PM EDT): Well controlled on current levothyroxine dosing. -Continue levothyroxine 88mcg daily Acute idiopathic gout of left foot 12/30/2022 Assessment & Plan (09/12/2023 1:21 PM EDT): No recent flares on daily allopurinol 300mg Recheck uric acid Assessment & Plan (01/02/2023 8:47 PM EDT): No recent flares with daily allopurinol Diverticulitis 12/30/2022 Assessment & Plan (04/17/2023 3:04 PM EST): presents today for complaints of abdominal pain. Has longstanding history of diverticulitis, most recently confirmed on colonoscopy in June of this year. She can pinpoint foods that induce exacerbation which generally include nuts and seeds. She notes approximately 5 days ago developing significant abdominal discomfort after eating chili dogs at [facility]. She noted the pain to be bilateral lower quadrant, cramping type pain. The pain was so intense she was unable to stand upright. During this time she also suffered from constipation, taking Colace without any benefit. She reports she was about to go to the emergency department 3 days ago but her symptoms started to somewhat improved. Improvement came after she had only clear fluid intake for approximately 48 hours. She denies any bloody stool. She reports she did have a normal bowel movement this morning without any repeat dosing of Colace. When treated for flares in the past she had adverse reaction to Flagyl. She does well with 7-day course of Cipro. -We will prescribe 7-day course of cipro 500 mg BID -Patient advised to continue bland diet. She does note she was able to eat some grilled chicken last night without any worsening symptoms. She notes her symptoms are actually somewhat improving. -Patient experiences further constipation will call office for further direction. Assessment & Plan (01/02/2023 8:47 PM EDT): Jun 2022 patient underwent most recent colonoscopy with findings of diverticulitis noted. She reports exacerbation with intake of nuts and seeds. Followed by Dr. Steele Resolved Problems Problem Noted Date Diagnosed Date Resolved Date S/P patent foramen ovale closure 12/30/2022 01/02/2023 Encounters Date Type Department Care Team Description 04/15/2024 10:00 AM EST Office Visit [facility] [address] [place] [address] [place] [phone] Jo Ann Byrd, BOILER FITTER Varicose veins of bilateral lower extremities with pain (Primary Dx) 04/15/2024 Travel 04/12/2024 Telephone [facility] [address] [place] [address] [place] [phone] Jo Ann Byrd, NOAH New Med Request 04/02/2024 Refill [facility] [address] [place] [address] [place] [phone] Jo Ann Byrd APRN 03/07/2024 3:30 PM EDT Office Visit [facility] [address] [place] [phone] Jo Ann Byrd, BOILER FITTER Encounter for immunization (Primary Dx); Hamstring strain, left, initial encounter; Primary hypertension 02/26/2024 Refill [facility] [address] [place] [address] [place] [phone] Jo Ann Byrd, BOILER FITTER Gastroesophageal reflux disease without esophagitis 01/30/2024 Telephone [facility] [address] [place] [address] [place] [phone] Jo Ann Byrd, BOILER FITTER Med Refill from Last 3 Months Immunizations Name Administration Dates Next Due FLUAD TRI 65YR+ 03/28/2019 Fluzone High-Dose 65+YRS 03/07/2024 Fluzone High-Dose 65+yrs 04/26/2023 Pneumococcal Conjugate 20-Valent (PCV20) 022 Td (TDVAX) 08/01/1996 Social History Tobacco Use Types Packs/Day Years Used Date Smoking Tobacco: Never Smokeless Tobacco: Never Tobacco Cessation:Counseling Given: Not Answered Alcohol Use Standard Drinks/Week Comments Never 0 [...] on file Sexual Orientation Not on file Last Filed Vital Signs Vital Sign Reading Time Taken Comments Blood Pressure 126/78 04/15/2024 9:56 AM EST Pulse 80 04/15/2024 9:56 AM EST Temperature 36.9 ??C (98.5 ??F) 04/15/2024 9:56 AM ES T Respiratory Rate 16 04/15/2024 9:56 AM EST Oxygen Saturation 98% 04/15/2024 9:56 AM EST Inhaled Oxygen Concentration - - Weight 79.5 kg (175 lb 3.2 oz) 04/15/2024 9:56 A M EST Height 157.5 cm (5' 2 ) 04/15/2024 9:56 AM EST Body Mass Index 32.04 04/15/2024 9:56 AM EST Plan of Treatment Health Maintenance Due Date Last Done Comments COLOGUARD 1950 COLON CANCER SCREENING 5 YEA R SIGMOIDOSCOPY 1950 [address] COLONOGRAPHY 1950 FECAL OCCULT BLOOD TEST 1950 FIT Testing (1 year) 1950 ZOSTER VACCINE (1 of 2) 01/02/2002 BMI FOLLOWUP 12/31/2023 12/30/2022, 12/30/2022 COVID-19 Vaccine (2 - 2023-2 5 season) 2024 09/01/2020 ANNUAL WELLNESS VISIT 09/11/2024 09/12/2023 TDAP/TD VACCINES (2 - Tdap) 09/11/2024 08/01/1996 Postponed from 08/01/2006 (Patient Refused) MAMMOGRAM 06/26/2025 06/26/2023, 05/11/2022 DXA SCAN 09/20/2025 09/21/2023 COLONOSCOPY 11/24/2032 11/24/2022, 11/10/2021, 07/23/2012 COLORECTAL CANCER SCREENING 11/24/2032 Pneumococcal Vaccine 65+ Completed 12/06/2021 HEPATITIS C SCREENING Completed 09/12/2023 INFLUENZA VACCINE Completed 03/07/2024, 04/26/2023, 03/28/2019 Procedures Procedure Name Priority Date/Time Associated Diagnosis Comments SCANNED - DEXA 09/21/2023 HEPATITIS C ANTIBODY Routine 09/12/2023 11:36 AM EDT Need for hepatitis C screening test SCANNED - MAMMO 06/26/2023 from Last 3 Months or Most Recently Relevant to Health Maintenance Results * DEXA Scan (09/21/2023) Anatomical Region Laterality Modality Other Jo Ann Byrd APRN CHART REVIEW TABS Final Result * Hepatitis C Antibody (09/12/2023 11:36 AM EDT) Hep C Virus Ab Non Reactive Non Reactive [facility] Comment: HCV antibody alone does not differentiate between previously resolved infection and active infection. Equivocal and Reactive HCV antibody results should be followed up with an HCV RNA test to support the diagnosis of active HCV infection. Blood Structure of left upper limb / Unknown 09/12/2023 11:36 AM EDT 09/12/2023 Comment:Blood Release to anila Landa [facility] - 09/13/2023 8:10 AM EDT Performed at: ??01 - [facility] [address] ??[id number] Reducing Machine Operator: Braulio Lopez PhD, Phone: ??[phone] Jo Ann Byrd APRN LAB BLOOD ORDERABLES Final Result [facility] [address] [place] [address], [place] [phone] [facility] [address] [place] [address], [place] [phone] * SCANNED - MAMMO (06/26/2023) Anatomical Region Laterality Modality Other Jo Ann Byrd APRN CHART REVIEW TABS Final Result from Last 3 Months or Most Recently Relevant to Health Maintenance Insurance Care Teams Retail Route Supervisor Relationship Specialty Start Date End Date Jo Ann Byrd APRN [address] [place], [place] [phone] PCP - General Family Medicine 12/30/22
--- OUTSIDE RECORDS SUMMARY | 2024-04-29 10:04 | XMS_ITS | Encounter Summary ---
[facility] Address [address] [place] [address] Care Team Providers Care Diet Aide Name Role Phone Jo Ann Byrd APRN Primary Care Provider [phone] Reason for Visit * Reason Comments Med Refill Encounter Details Date Type Department Care Team (Late st Contact Info) Description 02/26/2024 Refill [facility] [address] [place] [phone] Jo Ann Byrd APRN [address] [place] [address] Gastroesophageal reflux disease without esophagitis Social History Tobacco Use Types Packs/Day Years [...] on file documented as of this encounter Plan of Treatment Not on file documented as of this encounter Visit Diagnoses Diagnosis Gastroesophageal reflux disease without esophagitis Esophageal reflux documented in this encounter Care Teams Diet Aide Relationship Specialty Start Date End Date Jo Ann Byrd APRN [address] [place] [id number] PCP - General Family Medicine 12/30/22 documented as of this encounter
--- OUTSIDE RECORDS SUMMARY | 2024-04-29 10:04 | XMS_ITS | Encounter Summary ---
[facility] Address [address] [place] [address] Care Team Providers Care Child And Adolescent Psychologist Name Role Phone Jo Ann Byrd APRN Primary Care Provider [phone] Reason for Referral * Diagnostic Imaging (Routine) - Authorized - Pending Scheduling Specialty Diagnoses / Procedures Referred By La t Referred To Contact Diagnoses Varicose veins of bilateral lower extremities with pain Procedures US Venous Doppler Lower Extremity Left (duplex) Jo Ann Byrd APRN [address] [place] [address] Phone: tel: fax: [facility] [address] [place] [address] [place] [address] Phone: tel: Referral ID Status Reason Start Date Expiration Date Visits Requested Visits Authorized [id number] Authorized - Pending Scheduling 04/15/2024 04/15/2025 1 1 Reason for Visit * Reason Comments left leg pain Encounter Details Date Type Department Care Team (Late st Contact Info) Description 04/15/2024 10:00 AM EST Office Visit [facility] [address] [place] [address] [place] [address] Jo Ann Byrd APRN [address] [place], [place] [phone] Varicose veins of bilateral lower extremities with pain (Primary Dx) Social History Tobacco Use Types Packs/Day Years [...] on file documented as of this encounter Last Filed Vital Signs Vital Sign Reading [...] Mass Index 32.04 04/15/2024 9:56 AM EST documented in this encounter Progress Notes * Jo Ann Byrd APRN - 04/17/2024 5:09 PM ESTAssociated Problem(s): Varicose veins of bilateral lower extremities with pain Patient has well-documented history of issues with varicose veins of the bilateral lower extremities. SHe has had episodes of rupture . With past episodes she has also been noted to have superficialthrombophlebitis as well. Patient states her current episode has actually resolved at the time of ev aluation but she felt it would best to come and have it evaluated. No concerning findings on physical exam today, however with past history of thrombophlebitis will send for left lower extremity duplex to rule out any underlying DVT issues. We discussed referral to vascular that she declines at this time but will keep in mind * Jo Ann Byrd, CAPTAIN ASSISTANT - 04/15/2024 10:00 AM EST Images from the original note were not included. Office Note Name: Sharri Lawrence : 1950 Chief Complaint left leg pain Subjective History of Present Illness: Sharri Lawrence is a 74 y.o. female who presents today for one week of left thigh pain. Patient haswell-documented history of issues with varicose veins of the bilateral lower extremities. SHe has had episodes of rupture . With past episodes she has also been noted to have superficial thrombophlebitis as well. Patient states her current episode has actually resolved at the time of evaluation but she felt it would best to come and have it evaluated. Has never been evaluated by vascular for hervaricose veins in the past. No further complaints or concerns Review of Systems Constitutional: Negative for fatigue. Cardiovascular: Negative for chest pain, palpitations and leg swelling. Gastrointestinal: Negative for abdominal pain, constipation, diarrhea, nausea and vomiting. Musculoskeletal: Negative for arthralgias and myalgias. Neurological: Negative for dizziness, weakness, light-headedness and headache. Objective Past Medical History: Diagnosis Date Hypothyroidism Past Surgical History: Procedure Laterality Date BREAST SURGERY CARDIAC VALVE REPLACEMENT HERNIA REPAIR TUBAL ABDOMINAL LIGATION History reviewed. No pertinent family history. Vital Signs BP 126/78 (BP Location: Left arm, Patient Position: Sitting, Cuff Size: Adult) Pulse 80 Temp 98.5 ??F (36.9 ??C) (Temporal) Resp 16 Ht 157.5 cm (62 ) Wt 79.5 kg (175 lb 3.2 oz) SpO2 98% BMI 32.04 kg/m?? Estimated body mass index is 32.04 kg/m?? as calculated from the following: Height as of this encounter: 157.5 cm (62 ). Weight as of this encounter: 79.5 kg (175 lb 3.2 oz). Facility age limit for growth %sully is 20 years. Physical Exam Vitals reviewed. Constitutional: Appearance: Normal appearance. Cardiovascular: Rate and Rhythm: Normal rate and regular rhythm. Pulses: Normal pulses. Heart sounds: Normal heart sounds. Comments: Multiple bilateral lower extremity varicosities noted. Her left thigh without warmth, swelling or redness at time of evaluation today. She notes some ongoing mild tenderness with palpation. Pulmonary: Effort: Pulmonary effort is normal. Breath sounds: Normal breath sounds. Abdominal: General: Bowel sounds are normal. Palpations: Abdomen is soft. Musculoskeletal: Cervical back: Neck supple. Skin: General: Skin is warm and dry. Neurological: Mental Status: She is alert and oriented to person, place, and time. POCT Results (if applicable): Results for orders placed or performed in visit on 12/22/23 TSH Rfx On Abnormal To Free T4 Collection Time: 12/22/23 11:21 AM Specimen: Blood Blood Release to ty Result Value Ref Range TSH 4.710 (H) 0.450 - 4.500 uIU/mL T4F Collection Time: 12/22/23 11:21 AM Blood Release to ty Result Value Ref Range Free T4 1.10 0.82 - 1.77 ng/dL Assessment and Plan Diagnoses and all orders for this visit: 1. Varicose veins of bilateral lower extremities with pain (Primary) Assessment & Plan: Patient has well-documented history of issues with varicose veins of the bilateral lower extremities. SHe has had episodes of rupture . With past episodes she has also been noted to have superficialthrombophlebitis as well. Patient states her current episode has actually resolved at the time of ev aluation but she felt it would best to come and have it evaluated. No concerning findings on physical exam today, however with past history of thrombophlebitis will send for left lower extremity duplex to rule out any underlying DVT issues. We discussed referral to vascular that she declines at this time but will keep in mind Orders: - US Venous Doppler Lower Extremity Left (duplex); Future Follow Up No follow-ups on file. Jo Ann Byrd APRN documented in this encounter Plan of Treatment Scheduled Orders Name Type Priority Associated Diagnoses Orde r Schedule US Venous Doppler Lower Extremity Left (duplex) Imaging Routine Varicose veins of bilateral lower extremities with pain Expected: 04/20/2024 (Approximate), Expires: 04/15/2025 documented as of this encounter Visit Diagnoses Diagnosis Varicose veins of bilateral lower extremities with pain- Primary documented in this encounter Care Teams Child And Adolescent Psychologist Relationship Specialty Start Date End Date Jo Ann Byrd, NOAH [address] [place] [phone] PCP - General Family Medicine 12/30/22 documented as of this encounter
--- OUTSIDE RECORDS SUMMARY | 2024-04-29 10:04 | XMS_ITS | Encounter Summary ---
Author Organization [facility] Address [address] [place] [address] Care Team Providers Care Timekeeping Supervisor Name Role Phone Jo Ann Byrd APRN Primary Care Provider [phone] Encounter Details Date Type Department Care Team (Latest Contact Info) Description 04/15/2024 Travel Social History Tobacco Use Types Packs/Day Years [...] on filedocumented in this encounter Care Teams Timekeeping Supervisor Relationship Specialty Start Date End Date Jo Ann Byrd APRN [address] [place], [place] [phone] PCP - General Family Medicine 12/30/22 documented as of this encounter
--- OUTSIDE RECORDS SUMMARY | 2024-04-29 10:04 | XMS_ITS | Encounter Summary ---
[facility] Address [address] [place] [address] Care Team Providers Care Middle [employer] Art Teacher Name Role Phone Jo Ann Byrd DIRECTOR OF CUSTOMER SERVICE Primary Care Provider [phone] Reason for Visit * Reason Comments right side leg numbness Encounter Details Date Type Department Care Team (Late st Contact Info) Description 03/07/2024 3:30 PM EDT Office Visit [facility] [address] [place] [phone] Jo Ann Byrd, DIRECTOR OF CUSTOMER SERVICE [address] [place] [address] Encounter for immunization (Primary Dx); Hamstring strain, left, initial encounter; Primary hypertension Social History Tobacco Use Types Packs/Day Years [...] Sign Reading Time Taken Comments Blood Pressure 116/74 03/07/2024 3:08 PM EDT Pulse 54 03/07/2024 3:08 PM EDT Temperature 36.9 ??C (98.4 ??F) 03/07/2024 3:08 PM ED T Respiratory Rate 18 03/07/2024 3:08 PM EDT Oxygen Saturation 98% 03/07/2024 3:08 PM EDT Inhaled Oxygen Concentration - - Weight 78.9 kg (174 lb) 03/07/2024 3:08 PM EDT Height 157.5 cm (5' 2 ) 03/07/2024 3:08 PM EDT Body Mass Index 31.83 03/07/2024 3:08 PM EDT documented in this encounter Progress Notes * Jo Ann Byrd APRN - 03/12/2024 3:42 PM EDTAssociated Problem(s): Primary hypertension Blood pressure exhibiting a's control on current medications, 116/74. Continue lisinopril 10 mg daily and metoprolol 25 mg daily. Patient also to continue triamterene/HCTZ 70-50 mg half tablet daily * Jo Ann Byrd APRN - 03/12/2024 3:41 PM EDTAssociated Problem(s): Hamstring strain, left, initial encounter Appears the patient suffered a right hamstring sprain or strain while doing a lot of physical laborin preparation for a yard sale. Her issue responded well to cold compress and NSAID therapy at home. No concerning lingering findings on physical exam, patient states that her numbness and aching have completely resolved. If issues should return would benefit from ultrasound given history of DVT. * Jo Ann Byrd APRN - 03/07/2024 3:30 PM EDT Images from the original note were not included. Office Note Name: Sharri Lawrence : 1950 Chief Complaint right side leg numbness Subjective History of Present Illness: Sharri Lawrence is a 74 y.o. female who presents today for complaints of right hamstring numbness and discomfort. Patient states her symptoms began almost 1 week ago. Patient states she woke up in the night with posterior thigh pain. Patient stated the pain best described as a numbness and aching. She felt there was some redness and swelling noted as well. The day prior to onset she had done a lot of heavy lifting, pushing, pulling and tugging trying to prepare for a family yard sale. Patient states that her discomfort did respond well to ibuprofen. Today she feels as though her symptoms havecompletely resolved, however with history of blood clots wanted to be evaluated to err on the side of caution. No further complaints or concerns Review of Systems Constitutional: Negative for chills, fatigue and fever. Respiratory: Negative for cough and shortness of breath. Cardiovascular: Negative for chest pain, palpitations and leg swelling. Gastrointestinal: Negative for abdominal pain, nausea and vomiting. Endocrine: Negative for polydipsia and polyuria. Musculoskeletal: Positive for myalgias. Skin: Negative for rash and bruise. Neurological: Positive for numbness. Negative for dizziness, weakness, light- headedness and headache. Objective Past Medical History: Diagnosis Date Hypothyroidism Past Surgical History: Procedure Laterality Date BREAST SURGERY CARDIAC VALVE REPLACEMENT HERNIA REPAIR TUBAL ABDOMINAL LIGATION History reviewed. No pertinent family history. Vital Signs BP 116/74 (BP Location: Left arm, Patient Position: Sitting, Cuff Size: Adult) Pulse 54 Temp 98.4 ??F (36.9 ??C) (Temporal) Resp 18 Ht 157.5 cm (62 ) Wt 78.9 kg (174 lb) SpO2 98% BMI 31.83 kg/m?? Estimated body mass index is 31.83 kg/m?? as calculated from the following: Height as of this encounter: 157.5 cm (62 ). Weight as of this encounter: 78.9 kg (174 lb). Facility age limit for growth %sully is 20 years. Physical Exam Vitals reviewed. Constitutional: Appearance: Normal appearance. Eyes: Conjunctiva/sclera: Conjunctivae normal. Cardiovascular: Rate and Rhythm: Normal rate and regular rhythm. Pulses: Normal pulses. Heart sounds: Normal heart sounds. Pulmonary: Effort: Pulmonary effort is normal. Breath sounds: Normal breath sounds. Abdominal: General: Bowel sounds are normal. Palpations: Abdomen is soft. Musculoskeletal: General: Normal range of motion. Cervical back: Neck supple. Skin: General: Skin [...] and all orders for this visit: 1. Encounter for immunization (Primary) - Fluzone High-Dose 65+yrs 2. Hamstring strain, left, initial encounter Assessment & Plan: Appears the patient suffered a right hamstring sprain or strain while doing a lot of physical laborin preparation for a yard sale. Her issue responded well to cold compress and NSAID therapy at home. No concerning lingering findings on physical exam, patient states that her numbness and aching have completely resolved. If issues should return would benefit from ultrasound given history of DVT. 3. Primary hypertension Assessment & Plan: Blood pressure exhibiting a's control on current medications, 116/74. Continue lisinopril 10 mg daily and metoprolol 25 mg daily. Patient also to continue triamterene/HCTZ 70-50 mg half tablet daily Follow Up No follow-ups on file. Jo Ann Byrd APRN documented in this encounter Plan of Treatment Not on file documented as of this encounter Visit Diagnoses Diagnosis Encounter for immunization- Primary Hamstring strain, left, initial encounter Primary hypertension Unspecified essential hypertension documented in this encounter Care Teams Middle [employer] Art Teacher Relationship Specialty Start Date End Date Jo Ann Byrd APRN [address] [place], [place] [id number] PCP - General Family Medicine 12/30/22 documented as of this encounter
--- OUTSIDE RECORDS SUMMARY | 2024-04-29 10:05 | XMS_ITS | Encounter Summary ---
Author Organization [facility] Address [address] [place] [address] Care Team Providers Care Senior Mechanical Designer Name Role Phone Jo Ann Byrd SCALE MECHANIC Primary Care Provider [phone] Reason for Visit * Reason Onset Date Comments Med Refill 10/05/2023 Encounter Details Date Type Department Care Team (Late st Contact Info) Description 10/05/2023 Refill [facility] [address] [place] [phone] Jo Ann Byrd, SCALE MECHANIC [address] [place] [address] Social History Tobacco Use Types [...] encounter Miscellaneous Notes * Telephone Encounter - Meghan Kurtz - 10/05/2023 3:54 PM EDT I have sent her rx to the mail order pharmacy. TF * Telephone Encounter - Efra Anderson RegSched Rep - 10/05/2023 3:37 PM EDT Caller: Sharri Lawrence Relationship: Self Best call back number: [phone] Requested Prescriptions: Requested Prescriptions Pending Prescriptions Disp Refills pantoprazole (PROTONIX) 40 MG EC tablet 90 tablet 1 Sig: Take 1 tablet by mouth Daily. [facility] [address] [phone] [facility] [phone] FX Last office visit with prescribing clinician: 09/12/2023 Last telemedicine visit with prescribing clinician: Visit date not found Next office visit with prescribing clinician: Visit date not found Additional details provided by patient: PT WILL LIKE A LIST OF ALL HER MEDICATIONS TO BE SENT TO [facility] Does the patient have less than a 3 day supply: [x] Yes [] No Would you like a call back once the refill request has been completed: [] Yes [x] No If the office needs to give you a call back, can they leave a voicemail: [] Yes [x] No Saleem Hoffman 10/05/23 15:37 EDT documented in this encounter Plan of Treatment Not on file documented as of this encounter Visit Diagnoses Not on filedocumented in this encounter Care Teams Senior Mechanical Designer Relationship Specialty Start Date End Date Jo Ann Byrd, NOAH [address] [place] [id number] PCP - General Family Medicine 12/30/22 documented as of this encounter
--- OUTSIDE RECORDS SUMMARY | 2024-04-29 10:05 | XMS_ITS | Encounter Summary ---
[facility] Address [address] [place] [address] Care Team Providers Care Film Washer Name Role Phone Jo Ann Byrd AREA FIELD WORKER Primary Care Provider [phone] Encounter Details Date Type Department Care Team (Late st Contact Info) Description 02/28/2023 Telephone [facility] [address] [place] [phone] Jo Ann Byrd, AREA FIELD WORKER [address] [place], [place] [id number] Social History Tobacco Use Types Packs/Day Years Used Date Smoking Tobacco: Never Smokeless Tobacco: Never Alcohol Use Standard Drinks/Week Comments Never 0 (1 standard drink = 0.6 oz pur e alcohol) PHQ-2 Answer Date Recorded Retired PHQ-9: Brief Depression Severity Measure Score 0 12/30/2022 PHQ-2 Answer Date Recorded Retired PHQ-9: Brief Depression Severity Measure Score 0 12/30/2022 Comments Unknown Sex and Gender Information Value Date Recorded Sex Assigned at Not on file Legal Sex Female 10:58 AM EDT Gender Identity Not on file Sexual Orientation Not on file documented as of this encounter Miscellaneous Notes * Telephone Encounter - Brandi Diaz MA - 02/28/2023 1:11 PM EDT Patient requesting refills on protonix 40 mg patient states that she is no longer on omeprazole 20 documented in this encounter Plan of Treatment Not on file documented as of this encounter Visit Diagnoses Not on filedocumented in this encounter Care Teams Film Washer Relationship Specialty Start Date End Date Jo Ann Byrd APRN [address] [place], [place] [phone] PCP - General Family Medicine 12/30/22 documented as of this encounter
--- OUTSIDE RECORDS SUMMARY | 2024-04-29 10:05 | XMS_ITS | Encounter Summary ---
[facility] Address [address] [place] [address] Care Team Providers Care Trim Machine Adjuster Name Role Phone Jo Ann Byrd BUSINESS APPLICATIONS SPECIALIST Primary Care Provider [phone] Encounter Details Date Type Department Care Team (Late st Contact Info) Description 03/06/2023 Telephone [facility] [address] [place] [phone] Jo Ann Byrd, BUSINESS APPLICATIONS SPECIALIST [address] [place], [place] [phone] Social History Tobacco Use Types Packs/Day Years [...] Telephone Encounter - Brandi Diaz MA - 03/06/2023 1:58 PM EDT Last visi ton 12/30/2022 Rx sent * Telephone Encounter - Radha Cowan RegSched Rep - 03/06/2023 1:42 PM EDT REFILL REQUEST PANTOPRAZOLE 40 MG TAB DELAYED RELEASE documented in this encounter Plan of Treatment Not on file documented as of this encounter Visit Diagnoses Not on filedocumented in this encounter Care Teams Trim Machine Adjuster Relationship Specialty Start Date End Date Jo Ann Byrd, BUSINESS APPLICATIONS SPECIALIST [address] [place] [address] PCP - General Family Medicine 12/30/22 documented as of this encounter
--- OUTSIDE RECORDS SUMMARY | 2024-04-29 10:05 | XMS_ITS | Encounter Summary ---
Author Organization [facility] Address [address] [place] [address] Care Team Providers Care Creative Services Manager Name Role Phone Jo Ann Byrd APRN Primary Care Provider [phone] Reason for Referral * Consultation (Routine) - Closed Specialty Diagnoses / Procedures Referred By La t Referred To Contact Gastroenterology Diagnoses Gastroesophageal reflux disease without esophagitis History of esophageal stricture Procedures [place] OFFICE/OUTPATIENT NEW MODERATE MDM 45 MINUTES Jo Ann Byrd APRN [address] [place] [address] Phone: tel: fax: Kyle Steele MD [address] [place] [address] Phone: tel: fax: Referral ID Status Reason Start Date Expiration Date V isits Requested Visits Authorized [id number] Closed Specialty Services Required 11/29/2023 11/28/2024 1 1 Reason for Visit * Reason Comments indigestion issues Encounter Details Date Type Department Care Team (Latest Contact Info) Description 11/29/2023 3:45 PM EDT Office Visit [facility] [address] [place] [phone] Jo Ann Byrd APRN [address] [place] [address] Gastroesophageal reflux disease without esophagitis (Primary Dx); History of esophageal stricture Social History Tobacco Use Types Packs/Day Years [...] Sign Reading Time Taken Comments Blood Pressure 118/70 11/29/2023 3:49 PM EDT Pulse 63 11/29/2023 3:49 PM EDT Temperature 36.3 ??C (97.4 ??F) 11/29/2023 3:49 PM ED T Respiratory Rate 18 11/29/2023 3:49 PM EDT Oxygen Saturation 99% 11/29/2023 3:49 PM EDT Inhaled Oxygen Concentration - - Weight 79.3 kg (174 lb 12.8 oz) 11/29/2023 3:49 PM EDT Height 157.5 cm (5' 2 ) 11/29/2023 3:49 PM EDT Body Mass Index 31.97 11/29/2023 3:49 PM EDT documented in this encounter Progress Notes * Jo Ann Byrd APRN - 12/01/2023 8:03 AM EDTAssociated Problem(s): History of esophageal stricture presents today for issues with indigestion for a week or week and a half. She has been having issues swallowing as well. She feels like food is getting stuck in her throat, very predominant with bread, patient states that she does not eat very much meat. She has required esophageal dilatation during EGD on 3 previous occasions. -Refer to Dr. Steele * Jo Ann Byrd APRN - 12/01/2023 8:02 AM EDTAssociated Problem(s): Gastroesophageal reflux disease without esophagitis presents today for issues with indigestion for [...] is currently utilizing pantoprazole 40 mg once daily.She Has required esophageal dilatation during EGD on [...] to feelings of possible dysphagia as well * Jo Ann Byrd APRN - 11/29/2023 3:45 PM EDT Images from the original note were not included. Office Note Name: Sharri Lawrence : 1950 Chief Complaint indigestion issues Subjective History of Present Illness: Sharri Lawrence is a 73 y.o. female who presents today for issues with indigestion for [...] pain, chest pain or shortness of breath. He has no further complaints or concerns Review of Systems Constitutional: Negative for chills, fatigue and fever. Eyes: Negative for blurred vision and double vision. Respiratory: Negative for cough, chest tightness, shortness of breath and wheezing. Cardiovascular: Negative for chest pain, palpitations and leg swelling. Gastrointestinal: Positive for nausea, GERD and indigestion. Negative for abdominal distention, abdominal pain, constipation, diarrhea and vomiting. Endocrine: Negative for polydipsia and polyuria. Neurological: Negative for dizziness, weakness, light-headedness and headache. Hematological: Does not bruise/bleed easily. Objective Past Medical History: Diagnosis Date Hypothyroidism Past Surgical History: Procedure Laterality Date BREAST SURGERY CARDIAC VALVE REPLACEMENT HERNIA REPAIR TUBAL ABDOMINAL LIGATION History reviewed. No pertinent family history. Vital Signs BP 118/70 (BP Location: Left arm, Patient Position: Sitting, Cuff Size: Adult) Pulse 63 Temp 97.4 ??F (36.3 ??C) (Temporal) Resp 18 Ht 157.5 cm (62 ) Wt 79.3 kg (174 lb 12.8 oz) SpO2 99% BMI 31.97 kg/m?? Estimated body mass index is 31.97 kg/m?? as calculated from the following: Height as of this encounter: 157.5 cm (62 ). Weight as of this encounter: 79.3 kg (174 lb 12.8 oz). Facility age limit for growth %sully is 20 years. Physical Exam Vitals reviewed. Constitutional: Appearance: Normal appearance. HENT: Head: Normocephalic and atraumatic. Right Ear: Tympanic membrane, ear canal and external ear normal. Left Ear: Tympanic membrane and external ear normal. Nose: Nose normal. Mouth/Throat: Mouth: Mucous membranes are moist. Pharynx: Oropharynx is clear. Eyes: Conjunctiva/sclera: Conjunctivae normal. Pupils: Pupils are equal, round, and reactive to light. Cardiovascular: Rate and Rhythm: Normal rate and [...] orders placed or performed in visit on 09/12/23 TSH Rfx On Abnormal To Free T4 Specimen: Arm, Left; Blood Blood Release to ty Result Value Ref Range TSH 1.520 0.450 - 4.500 uIU/mL Lipid Panel Specimen: Arm, Left; Blood Blood Release to ty Result Value Ref Range Total Cholesterol 131 100 - 199 mg/dL Triglycerides 117 0 - 149 mg/dL HDL Cholesterol 41 >39 mg/dL VLDL Cholesterol Napoleon 21 5 - 40 mg/dL LDL Chol Calc (NIH) 69 0 - 99 mg/dL Comprehensive Metabolic Panel Specimen: Arm, Left; Blood Blood Release to ty Result Value Ref Range Glucose 104 (H) 70 - 99 mg/dL BUN 8 8 - 27 mg/dL Creatinine 0.88 0.57 - 1.00 mg/dL EGFR Result 70 >59 mL/min/1.73 BUN/Creatinine Ratio 9 (L) 12 - 28 Sodium 136 134 - 144 mmol/L Potassium 3.9 3.5 - 5.2 mmol/L Chloride 99 96 - 106 mmol/L Total CO2 21 20 - 29 mmol/L Calcium 9.2 8.7 - 10.3 mg/dL Total Protein 6.7 6.0 - 8.5 g/dL Albumin 3.9 3.8 - 4.8 g/dL Globulin 2.8 1.5 - 4.5 g/dL A/G Ratio 1.4 1.2 - 2.2 Total Bilirubin 0.7 0.0 - 1.2 mg/dL Alkaline Phosphatase 97 44 - 121 IU/L AST (SGOT) 30 0 - 40 IU/L ALT (SGPT) 14 0 - 32 IU/L Hepatitis C Antibody Specimen: Arm, Left; Blood Blood Release to ty Result Value Ref Range Hep C Virus Ab Non Reactive Non Reactive CBC & Differential Specimen: Arm, Left; Blood Blood Release to ty Result Value Ref Range WBC 4.1 3.4 - 10.8 x10E3/uL RBC 4.15 3.77 - 5.28 x10E6/uL Hemoglobin 13.1 11.1 - 15.9 g/dL Hematocrit 39.8 34.0 - 46.6 % MCV 96 79 - 97 fL MCH 31.6 26.6 - 33.0 pg MCHC 32.9 31.5 - 35.7 g/dL RDW 13.5 11.7 - 15.4 % Platelets 182 150 - 450 x10E3/uL Neutrophil Rel % 63 Not Estab. % Lymphocyte Rel % 23 Not Estab. % Monocyte Rel % 11 Not Estab. % Eosinophil Rel % 1 Not Estab. % Basophil Rel % 1 Not Estab. % Neutrophils Absolute 2.6 1.4 - 7.0 x10E3/uL Lymphocytes Absolute 1.0 0.7 - 3.1 x10E3/uL Monocytes Absolute 0.5 0.1 - 0.9 x10E3/uL Eosinophils Absolute 0.0 0.0 - 0.4 x10E3/uL Basophils Absolute 0.0 0.0 - 0.2 x10E3/uL Immature Granulocyte Rel % 1 Not Estab. % Immature Grans Absolute 0.0 0.0 - 0.1 x10E3/uL Assessment and Plan Diagnoses and all orders for this visit: 1. Gastroesophageal reflux disease without esophagitis (Primary) Assessment & Plan: presents today for issues with indigestion for [...] is currently utilizing pantoprazole 40 mg once daily.She Has required esophageal dilatation during EGD on [...] to feelings of possible dysphagia as well Orders: - Ambulatory Referral to Gastroenterology - pantoprazole (PROTONIX) 40 MG EC tablet; Take 1 tablet by mouth 2 (Two) Times a Day for 90 days. Dispense: 180 tablet; Refill: 0 2. History of esophageal stricture Assessment & Plan: presents today for issues with indigestion for a week or week and a half. She has been having issues swallowing as well. She feels like food is getting stuck in her throat, very predominant with bread, patient states that she does not eat very much meat. She has required esophageal dilatation during EGD on 3 previous occasions. -Refer to Dr. Steele Orders: - Ambulatory Referral to Gastroenterology Follow Up No follow-ups on file. Jo Ann Byrd APRN documented in this encounter Plan of Treatment Not on file documented as of this encounter Visit Diagnoses Diagnosis Gastroesophageal reflux disease without esophagitis- Primary Esophageal reflux History of esophageal stricture documented in this encounter Care Teams Creative Services Manager Relationship Specialty Start Date End Date Jo Ann Byrd APRN [address] [place] [address] PCP - General Family Medicine 12/30/22 documented as of this encounter
--- OUTSIDE RECORDS SUMMARY | 2024-04-29 10:05 | XMS_ITS | Encounter Summary ---
[facility] Address [address] [place] [address] Care Team Providers Care Attorney Law Clerk Name Role Phone Jo Ann Byrd PASTORAL COUNSELOR Primary Care Provider [phone] Encounter Details Date Type Department Care Team (Late st Contact Info) Description 09/14/2023 Telephone [facility] [address] [place] [phone] Jo Ann Byrd, PASTORAL COUNSELOR [address] [place], [place] [phone] Social History Tobacco Use Types Packs/Day Years [...] Telephone Encounter - Brandi Diaz MA - 09/14/2023 1:31 PM EDT Attempted to contact patient number listed was not the correct number left message on husbands phone to return my call for lab results * Telephone Encounter - Brandi Diaz MA - 09/14/2023 1:31 PM EDT ----- Message from Jo Ann Byrd APRN sent at 09/14/2023 8:23 AM EDT ----- Please let Sharri know her labs were good. Her fasting glucose is just slightly elevated so we will check an A1C at her next visit. documented in this encounter Plan of Treatment Not on file documented as of this encounter Visit Diagnoses Not on filedocumented in this encounter Care Teams Attorney Law Clerk Relationship Specialty Start Date End Date Jo Ann Byrd APRN [address] [place] [id number] PCP - General Family Medicine 12/30/22 documented as of this encounter
--- OUTSIDE RECORDS SUMMARY | 2024-04-29 10:05 | XMS_ITS | Encounter Summary ---
[facility] Address [address] [place] [address] Care Team Providers Care Rubber Cutter Name Role Phone Jo Ann Byrd APRN Primary Care Provider [phone] Reason for Referral * Diagnostic Imaging (Routine) - Closed Specialty Diagnoses / Procedures Referred By Contnguyen t Referred To Contact Diagnoses Screening for osteoporosis Procedures DEXA Bone Density Axial Jo Ann Bydr APRN [address] [place] [address] Phone: tel: fax: [facility] [address] [place] [address] Phone: tel: Referral ID Status Reason Start Date Expiration Date Visits Re quested Visits Authorized [id number] Closed 09/12/2023 09/11/2024 1 1 Reason for Visit * Reason Comments Medicare Wellness-subsequent Encounter Details Date Type Department Care Team (Late st Contact Info) Description 09/12/2023 11:30 AM EDT Office Visit [facility] [address] [place] [address] [place] [address] Jo Ann Byrd APRN [address] [place] [address] Primary hypertension (Primary Dx); Acquired hypothyroidism; Acute idiopathic gout of left foot; Medicare annual wellness visit, subsequent; Need for hepatitis C screening test; Screening for osteoporosis; Interatrial septal defect; Gastroesophageal reflux disease without esophagitis Social History [...] Sign Reading Time Taken Comments Blood Pressure 122/68 09/12/2023 11:22 AM EDT Pulse 78 09/12/2023 11:22 AM EDT Temperature 36.5 ??C (97.7 ??F) 09/12/2023 11:22 AM E DT Respiratory Rate 18 09/12/2023 11:22 AM EDT Oxygen Saturation 100% 09/12/2023 11:22 AM EDT Inhaled Oxygen Concentration - - Weight 76.2 kg (168 lb) 09/12/2023 11:22 AM EDT Height 157.5 cm (5' 2 ) 09/12/2023 11:22 AM EDT Body Mass Index 30.73 09/12/2023 11:22 AM EDT documented in this encounter Progress Notes * Jo Ann Byrd APRN - 09/12/2023 1:29 PM EDTAssociated Problem(s): Gastroesophageal reflux disease without esophagitis Well-controlled with daily pantoprazole * Jo Ann Byrd APRN - 09/12/2023 1:29 PM EDTAssociated Problem(s): Medicare annual wellness visit, subsequent Patient up to date on mammography and colon cancer screening. She continues to be followed regularly by Dr. Montez, Cardiology after undergoing repair of interatrial septal defect approximately 10 years ago. Declines any updated vaccinations including COVID, Tdap, RSV or shingles. He has no complaints or concerns today * Jo Ann Byrd APRN - 09/12/2023 1:22 PM EDTAssociated Problem(s): Primary hypertension Blood pressure well controlled, 122/68 in office today -Continue metoprolol XL 25mg daily * Jo Ann Byrd APRN - 09/12/2023 1:21 PM EDTAssociated Problem(s): Acute idiopathic gout of left foot No recent flares on daily allopurinol 300mg Recheck uric acid * Jo Ann Byrd APRN - 09/12/2023 1:20 PM EDTAssociated Problem(s): Acquired hypothyroidism Patient historically well-controlled on levothyroxine 75 mcg daily. Will recheck TSH level today * Jo Ann Byrd APRN - 09/12/2023 11:57 AM EDTAssociated Problem(s): Interatrial septal defect Followed by Dr. Montez, underwent repair approximately 10 years ago * Brandi Diaz MA - 09/12/2023 11:30 AM EDT Venipuncture Blood Specimen Collection Venipuncture performed in left arm by Brandi Diaz MA with good hemostasis. Patient tolerated the procedure well without complications. 09/12/23 Brandi Diaz MA * Jo Ann Byrd APRN - 09/12/2023 11:30 AM EDT The ABCs of the Annual Wellness Visit Subsequent Medicare Wellness Visit Chief Complaint Patient presents with Medicare Wellness-subsequent Subjective History of Present Illness: Sharri Lawrence is a 73 y.o. female who presents for a Subsequent Medicare Wellness Visit and Annual physical exam The following portions of the patient's history were reviewed and updated as appropriate: allergies, current medications, past family history, past medical history, past social history, past surgical history, and problem list. Compared to one year ago, the patient feels her physical health is the same. Compared to one year ago, the patient feels her mental health is the same. Recent Hospitalizations: She was not admitted to the hospital during the last year. Current Medical Providers: Patient Care Team: Jo Ann Byrd APRN as PCP - General (Family Medicine) Outpatient Medications Prior to Visit Medication Sig Dispense Refill allopurinol (ZYLOPRIM) 300 MG tablet Take 1 tablet by mouth Daily. aspirin 81 MG EC tablet Take 1 tablet every day by oral route. levothyroxine (SYNTHROID, LEVOTHROID) 75 MCG tablet Take 1 tablet by mouth Daily. lisinopril (PRINIVIL,ZESTRIL) 10 MG tablet Take 1 tablet every day by oral route. metoprolol succinate XL (TOPROL-XL) 25 MG 24 hr tablet Take 1 tablet by mouth Daily. pantoprazole (PROTONIX) 40 MG EC tablet Take 1 tablet by mouth Daily. 90 tablet 1 potassium chloride (K-DUR,KLOR-CON) 20 MEQ CR tablet triamcinolone (KENALOG) 0.1 % ointment APPLY OINTMENT TOPICALLY ON SKIN TWICE DAILY NEEDED FOR ITCHING/RASH DIRECTED lmawzopygiuuyuk-oevwvqibwwljvvm-TZ 30-2-10 MG/5ML syrup Take 10 mL by mouth 4 (Four) Times a Day AsNeeded for Cough. 200 mL 0 levothyroxine (SYNTHROID, LEVOTHROID) 88 MCG tablet Take 1 tablet by mouth Every Morning. No facility-administered medications prior to visit. No opioid medication identified on active medication list. I have reviewed chart for other potential high risk medication/s and harmful drug interactions in the elderly. Aspirin is on active medication list. Aspirin use is indicated based on review of current medical condition/s. Pros and cons of this therapy have been discussed today. Benefits of this medication outweigh potential harm. Patient has been encouraged to continue taking this medication. . Patient Active Problem List Diagnosis Primary hypertension Acquired hypothyroidism Acute idiopathic gout of left foot Diverticulitis Interatrial septal defect Muscle cramps Medicare annual wellness visit, subsequent Gastroesophageal reflux disease without esophagitis Advance Care Planning Advance Directive is not on file. ACP discussion was held with the patient during this visit. Patient has an advance directive (not in EMR), copy requested. Review of Systems Constitutional: Negative for activity change and fatigue. Eyes: Negative for visual disturbance. Respiratory: Negative for apnea, cough, shortness of breath and wheezing. Cardiovascular: Negative for chest pain, palpitations and leg swelling. Gastrointestinal: Negative for abdominal distention, abdominal pain, constipation, diarrhea, nauseaand vomiting. Endocrine: Negative for polydipsia and polyuria. Genitourinary: Negative for difficulty urinating, flank pain, frequency and hematuria. Musculoskeletal: Negative for arthralgias and myalgias. Skin: Negative for rash. Neurological: Negative for dizziness, weakness and light-headedness. Psychiatric/Behavioral: Negative for agitation, self-injury, sleep disturbance and suicidal ideas. The patient is not nervous/anxious. Objective Vitals: 09/12/23 1122 BP: 122/68 BP Location: Left arm Patient Position: Sitting Cuff Size: Adult Pulse: 78 Resp: 18 Temp: 97.7 ??F (36.5 ??C) TempSrc: Temporal SpO2: 100% Weight: 76.2 kg (168 lb) Height: 157.5 cm (62 ) Estimated body mass index is 30.73 kg/m?? as calculated from the following: Height as of this encounter: 157.5 cm (62 ). Weight as of this encounter: 76.2 kg (168 lb). Does the patient have evidence of cognitive impairment? No Physical Exam Vitals reviewed. Constitutional: Appearance: Normal appearance. HENT: Head: Normocephalic and atraumatic. Right Ear: Tympanic membrane, ear canal and external ear normal. Left Ear: Tympanic membrane, ear canal and external ear normal. Nose: Nose normal. [...] Skin: General: Skin is warm and dry. Capillary Refill: Capillary refill takes less than 2 seconds. Neurological: Mental Status: She is alert and oriented to person, place, and time. Psychiatric: Mood and Affect: Mood normal. Behavior: Behavior normal. Thought Content: Thought content normal. Judgment: Judgment normal. HEALTH RISK ASSESSMENT Smoking Status: Social History Tobacco Use Smoking Status Never Smokeless Tobacco Never Alcohol Consumption: Social History Substance and Sexual Activity Alcohol Use Never Fall Risk Screen: STEADI Fall Risk Assessment was completed, and patient is at LOW risk for falls.Assessment completed on:09/12/2023 Depression Screenin09/12/2023 11:24 AM PHQ-2/PHQ-9 Depression Screening Little Interest or Pleasure in Doing Things 0-->not at all Feeling Down, Depressed or Hopeless 0-->not at all PHQ-9: Brief Depression Severity Measure Score 0 Health Habits and Functional and Cognitive Screenin09/12/2023 11:25 AM Functional & Cognitive Status Do you have difficulty preparing food and eating? No Do you have difficulty bathing yourself, getting dressed or grooming yourself? No Do you have difficulty using the toilet? No Do you have difficulty moving around from place to place? No Do you have trouble with steps or getting out of a bed or a chair? No Current Diet Other Dental Exam Up to date Eye Exam Up to date Exercise (times per week) 2 times per week Current Exercises Include Walking Do you need help using the phone? No Are you deaf or do you have serious difficulty hearing? No Do you need help to go to places out of walking distance? No Do you need help shopping? No Do you need help preparing meals? No Do you need help with housework? No Do you need help with laundry? No Do you need help taking your medications? No Do you need help managing money? No Do you ever drive or ride in a car without wearing a seat belt? No Have you felt unusual stress, anger or loneliness in the last month? No Who do you live with? Spouse If you need help, do you have trouble finding someone available to you? No Have you been bothered in the last four weeks by sexual problems? No Do you have difficulty concentrating, remembering or making decisions? No Age-appropriate Screening Schedule: Refer to the list below for future screening recommendations based on patient's age, sex and/or medical conditions. Orders for these recommended tests are listed in the plan section. The patient has been provided with a written plan. Health Maintenance Topic Date Due DXA SCAN Never done HEPATITIS C SCREENING Never done ANNUAL WELLNESS VISIT Never done ZOSTER VACCINE (1 of 2) 09/12/2023 (Originally 01/02/2002) COVID-19 Vaccine (2 - 2022-24 season) 2023 (Originally 01/27/2023) RSV Vaccine - Adults (1 - 1-dose 60+ series) 09/11/2024 (Originally 2012) TDAP/TD VACCINES (2 - Tdap) 09/11/2024 (Originally 08/01/2006) INFLUENZA VACCINE 12/28/2023 BMI FOLLOWUP 12/31/2023 MAMMOGRAM 06/26/2025 COLORECTAL CANCER SCREENING 11/11/2031 Pneumococcal Vaccine 65+ Completed Assessment & Plan [facility] Preventative Services Quick Reference Risk Factors Identified During Encounter None Identified The above risks/problems have been discussed with the patient. Follow up actions/plans if indicated are seen below in the Assessment/Plan Section. Pertinent information has been shared with the patient in the After Visit Summary. Diagnoses and all orders for this visit: 1. Primary hypertension (Primary) Assessment & Plan: Blood pressure well controlled, 122/68 in office today -Continue metoprolol XL 25mg daily 2. Acquired hypothyroidism Assessment & Plan: Patient historically well-controlled on levothyroxine 75 mcg daily. Will recheck TSH level today Orders: - TSH Rfx On Abnormal To Free T4; Future - TSH Rfx On Abnormal To Free T4 3. Acute idiopathic gout of left foot Assessment & Plan: No recent flares on daily allopurinol 300mg Recheck uric acid Orders: - Uric Acid; Future 4. Medicare annual wellness visit, subsequent Assessment & Plan: Patient up to date on mammography and colon cancer screening. She continues to be followed regularly by Dr. Montez, Cardiology after undergoing repair of interatrial septal defect approximately 10 years ago. Declines any updated vaccinations including COVID, Tdap, RSV or shingles. He has no complaints or concerns today Orders: - Comprehensive Metabolic Panel; Future - CBC & Differential; Future - Lipid Panel; Future - Lipid Panel - CBC & Differential - Comprehensive Metabolic Panel 5. Need for hepatitis C screening test - Hepatitis C Antibody; Future - Hepatitis C Antibody 6. Screening for osteoporosis - DEXA Bone Density Axial 7. Interatrial septal defect Assessment & Plan: Followed by Dr. Montez, underwent repair approximately 10 years ago 8. Gastroesophageal reflux disease without esophagitis Assessment & Plan: Well-controlled with daily pantoprazole Follow Up: Return in about 6 months (around 03/13/2024) for Next scheduled follow up. An After Visit Summary and PPPS were made available to the patient. documented in this encounter Plan of Treatment Scheduled Orders Name Type Priority Associated Diagnoses Orde r Schedule DEXA Bone Density Axial Imaging Routine Screening for osteoporosis Ordered: 09/12/2023 documented as of this encounter Procedures Procedure Name Priority Date/Time Associated Diagnosis Comments TSH RFX ON ABNORMAL TO FREE T4 Routine 09/12/2023 11:36 AM EDT Acquired hypothyroidism HEPATITIS C ANTIBODY Routine 09/12/2023 11:36 AM EDT Need for hepatitis C screening test CBC AND DIFFERENTIAL Routine 09/12/2023 11:36 AM EDT Medicare annual wellness visit, subsequent LIPID PANEL Routine 09/12/2023 11:36 AM EDT Medicare annual wellness visit, subsequent COMPREHENSIVE METABOLIC PANEL Routine 09/12/2023 11:36 AM EDT Medicare annual wellness visit, subsequent documented in this encounter Results * TSH Rfx On Abnormal To Free T4 (09/12/2023 11:36 AM EDT) TSH 1.520 0.450 - 4.500 uIU/mL [facility] Blood Structure of left upper limb / Unknown 09/12/2023 11:36 AM EDT 09/12/2023 Comment:Blood Release to pat i Narrative [facility] ([facility]UL[facility]) - 09/13/2023 8:10 AM EDT Performed at: ??01 - [facility] [address] ??[id number] Senior Clinical Consultant: Braulio Lopez PhD, Phone: ??[phone] Jo Ann Byrd HAND COPER LAB BLOOD ORDERABLES Final Result Performing Organization Address City/[facility]/ZIP Co de Phone Number [facility] ([facility]) [address] [place] [address], [place] [phone] [facility] [address] [place] [address], [place] [phone] * Lipid Panel (09/12/2023 11:36 AM EDT) Total Cholesterol 131 100 - 199 mg/dL [facility] Triglycerides 117 0 - 149 mg/dL [facility] HDL Cholesterol 41 >39 mg/dL [facility] VLDL Cholesterol [place] 21 5 - 40 mg/dL [facility] LDL Chol Calc (NIH) 69 0 - 99 mg/dL [facility] Blood Structure of left upper limb / Unknown 09/12/2023 11:36 AM EDT 09/12/2023 Comment:Blood Release to pat i Narrative [facility] ([facility]) - 09/13/2023 8:10 AM EDT Performed at: ??01 - [facility] [address] ??[id number] Senior Clinical Consultant: Braulio Lopez PhD, Phone: ??[phone] Jo Ann Byrd APRN LAB BLOOD ORDERABLES Final Result Performing Organization Address City/[facility]/ZIP Co de Phone Number [facility] ([facility]) [address] [place] [address], [place] [phone] [facility] [address] [place] [address], * CBC & Differential (09/12/2023 11:36 AM EDT) WBC 4.1 3.4 - 10.8 x10E3/uL [facility] RBC 4.15 3.77 - 5.28 x10E6/uL [facility] Hemoglobin 13.1 11.1 - 15.9 g/dL [facility] Hematocrit 39.8 34.0 - 46.6 % [facility] MCV 96 79 - 97 fL [facility] MCH 31.6 26.6 - 33.0 pg [facility] MCHC 32.9 31.5 - 35.7 g/dL [facility] RDW 13.5 11.7 - 15.4 % [facility] Platelets 182 150 - 450 x10E3/uL [facility] Neutrophil Rel % 63 Not Estab. % [facility] Lymphocyte Rel % 23 Not Estab. % [facility] Monocyte Rel % 11 Not Estab. % [facility] Eosinophil Rel % 1 Not Estab. % [facility] Basophil Rel % 1 Not Estab. % [facility] Neutrophils Absolute 2.6 1.4 - 7.0 x10E3/uL [facility] Lymphocytes Absolute 1.0 0.7 - 3.1 x10E3/uL [facility] Monocytes Absolute 0.5 0.1 - 0.9 x10E3/uL [facility] Eosinophils Absolute 0.0 0.0 - 0.4 x10E3/uL [facility] Basophils Absolute 0.0 0.0 - 0.2 x10E3/uL [facility] Immature Granulocyte Rel % 1 Not Estab. % [facility] Immature Grans Absolute 0.0 0.0 - 0.1 x10E3/uL [facility] Blood Structure of left upper limb / Unknown 09/12/2023 11:36 AM EDT 09/12/2023 Comment:[facility]ila [facility] ([facility]) - 09/13/2023 8:10 AM EDT Performed at: ??01 - [facility] [place] [address] [place], [place] ??[id number] Senior Clinical Consultant: Braulio Lopez PhD, Phone: ??[phone] Jo Ann Byrd APRN LAB BLOOD ORDERABLES Final Result [facility] [address] [place] [address], [facility] [address] [place] [address], * (ABNORMAL) Comprehensive Metabolic Panel (09/12/2023 11:36 AM EDT) Glucose 104(H) 70 - 99 mg/dL [facility] BUN 8 8 - 27 mg/dL [facility] Creatinine 0.88 0.57 - 1.00 mg/dL [facility] EGFR Result 70 >59 mL/min/1.7 3 [facility] BUN/Creatinine Ratio 9(L) 12 - 28 [facility] Sodium 136 134 - 144 mmol/L [facility] Potassium 3.9 3.5 - 5.2 mmol/L [facility] Chloride 99 96 - 106 mmol/L [facility] Total CO2 21 20 - 29 mmol/L [facility] Calcium 9.2 8.7 - 10.3 mg/dL [facility] Total Protein 6.7 6.0 - 8.5 g/dL [facility] Albumin 3.9 3.8 - 4.8 g/dL [facility] Globulin 2.8 1.5 - 4.5 g/dL [facility] A/G Ratio 1.4 1.2 - 2.2 [facility] Total Bilirubin 0.7 0.0 - 1.2 mg/dL [facility] Alkaline Phosphatase 97 44 - 121 IU/L [facility] AST (SGOT) 30 0 - 40 IU/L [facility] ALT (SGPT) 14 0 - 32 IU/L [facility] Blood Structure of left upper limb / Unknown 09/12/2023 11:36 AM EDT 09/12/2023 Comment:Blood Release to anila Landa [facility] ([facility]) - 09/13/2023 8:10 AM EDT Performed at: ??01 - [facility] ??[id number] Senior Clinical Consultant: Braulio Lopez PhD, Phone: ??[phone] Jo Ann Byrd APRN LAB BLOOD ORDERABLES Final Result Performing Organization Address City/[facility]/ZIP Co de Phone Number [facility] (AMBULATORY) [address] [place] [address], [place] [phone] [facility] [address] [place] [address], [place] [phone] * Hepatitis C Antibody (09/12/2023 11:36 AM EDT) Pathologist [facility] Hep C Virus Ab Non Reactive Non Reactive [facility] Comment: HCV antibody alone does not differentiate between previously resolved infection and active infection. Equivocal and Reactive HCV antibody results should be followed up with an HCV RNA test to support the diagnosis of active HCV infection. Blood Structure of left upper limb / Unknown 09/12/2023 11:36 AM EDT 09/12/2023 Comment:Blood Release to [facility] janice Landa [facility] (AMBULATORY) - 09/13/2023 8:10 AM EDT Performed at: ??01 - [facility] ??[id number] Senior Clinical Consultant: Braulio Lopez PhD, Phone: ??[phone] Jo Ann Byrd APRN LAB BLOOD ORDERABLES Final Result Performing Organization Address City/[facility]/ZIP Co de Phone Number [facility] (AMBUL[facility]ORY) [address] [place] [address], [place] [phone] [facility] [address] [place] [address], [place] [phone] documented in this encounter Visit Diagnoses Diagnosis Primary hypertension- Primary Unspecified essential hypertension Acquired hypothyroidism Unspecified hypothyroidism Acute idiopathic gout of left foot Medicare annual wellness visit, subsequent Need for hepatitis C screening test Special screening examination for other specified viral diseases Screening for osteoporosis Special screening for osteoporosis Interatrial septal defect Ostium secundum type atrial septal defect Gastroesophageal reflux disease without esophagitis Esophageal reflux documented in this encounter Care Teams Rubber Cutter Relationship Specialty Start Date End Date Jo Ann Byrd APRN [address] [place] [address] PCP - General Family Medicine 12/30/22 documented as of this encounter
--- OUTSIDE RECORDS SUMMARY | 2024-04-29 10:05 | XMS_ITS | Encounter Summary ---
[facility] Address [address] [place] [address] Care Team Providers Care Do All Operator Name Role Phone Jo Ann Byrd OFFICE ENGINEER Primary Care Provider [phone] Reason for Visit * Reason Onset Date Comments Results 12/25/2023 Encounter Details Date Type Department Care Team (Late st Contact Info) Description 12/25/2023 Telephone [facility] [address] [place] [phone] Jo Ann Byrd, OFFICE ENGINEER [address] [place] [address] Results Social History Tobacco Use Types Packs/Day Years [...] Telephone Encounter - Brandi Diaz MA - 12/25/2023 3:21 PM EDT Called and advised patient that Jo Ann is out of the office until Wednesday and she verbalized understanding * Telephone Encounter - Vickie Roy RegSched Rep - 12/25/2023 3:12 PM EDT Caller: Howard Sharri Relationship: Self Best call back number: [phone] Caller requesting test results: LABS What test was performed: THYROID TEST When was the test performed: 7.26 Where was the test performed: OFFICE Additional notes: PLEASE CALL WITH RESULTS documented in this encounter Plan of Treatment Not on file documented as of this encounter Visit Diagnoses Not on filedocumented in this encounter Care Teams Do All Operator Relationship Specialty Start Date End Date Jo Ann Byrd APRN [address] [place], [place] [id number] PCP - General Family Medicine 12/30/22 documented as of this encounter
--- OUTSIDE RECORDS SUMMARY | 2024-04-29 10:05 | XMS_ITS | Encounter Summary ---
[facility] Address [address] [place] [address] Care Team Providers Care Heel Attacher Wood Name Role Phone Jo Ann Byrd BELT SANDER STONE Primary Care Provider [phone] Reason for Visit * Reason Comments legs cramping Encounter Details Date Type Department Care Team (Late st Contact Info) Description 02/14/2023 10:15 AM EDT Office Visit [facility] [address] [place] [phone] Jo Ann Byrd, BELT SANDER STONE [address] [place] [address] Muscle cramps (Primary Dx); Primary hypertension Social History Tobacco Use Types [...] Sign Reading Time Taken Comments Blood Pressure 162/88 02/14/2023 10:11 AM EDT Pulse 60 02/14/2023 10:11 AM EDT Temperature 36.1 ??C (97 ??F) 02/14/2023 10: 11 AM EDT Respiratory Rate 18 02/14/2023 10:1 1 AM EDT Oxygen Saturation 98% 02/14/2023 10: 11 AM EDT Inhaled Oxygen Concentration - - Weight 77.7 kg (171 lb 3.2 oz) 02/14/2023 10:11 AM EDT Height 157.5 cm (5' 2 ) 02/14/2023 10:1 1 AM EDT patient reported Body Mass Index 31.31 02/14/2023 10:11 AM EDT documented in this encounter Progress Notes * Jo Ann Byrd APRN - 02/15/2023 8:12 AM EDTAssociated Problem(s): Muscle cramps presents today for nocturnal muscle cramps. Patient [...] does not take any daily supplements. Normal physicalexam -We will check electrolytes in office today. Will likely benefit from magnesium supplement for nocturnal muscle cramping. Also advised to cut back on Mountain Dew intake and implement more water to maintain hydration. * Jo Ann Byrd APRN - 02/15/2023 8:11 AM EDTAssociated Problem(s): Primary hypertension Blood pressure continues to exhibit excellent control on home log, her blood pressure is elevated in office today, 162/88. This is attributed to the fact that she forgot her medications yesterday andhas not taken medication this morning. -Continue lisinopril 10 mg once daily -Continue metoprolol XL 25 mg once daily -Advised to monitor blood pressure at home to ensure it is remaining well controlled at all times when she remembers to take her medication, also reinforced importance of med compliance * Jo Ann Byrd APRN - 02/14/2023 10:15 AM EDT Images from the original note were not included. Office Note Name: Sharri Lawrence : 1950 Chief Complaint legs cramping Subjective History of Present Illness: Sharri Lawrence is a 73 y.o. female who presents today for nocturnal muscle cramps. Patient noticedwaking up with bilateral cramping of calf muscles in the middle the night approximately 1 to 2 months ago. This coincided with increased physical labor she had been doing due to her being down his back. The cramping is always at night during sleep, no pain or discomfort with long periods ofstanding or walking. No swelling or erythema of bilateral lower extremities. She denies any occurrence chest pain or shortness of breath. During our visit she endorses drinking predominantly Mtn Dew,not much water intake even on hotter days when she is outside working in the yard. She does not take any daily supplements. She has no further complaints or concerns today Review of Systems Constitutional: Negative for activity change and appetite change. Respiratory: Negative for cough, chest tightness, shortness of breath and wheezing. Cardiovascular: Negative for chest pain, palpitations and leg swelling. Gastrointestinal: Negative for constipation, diarrhea, nausea and vomiting. Musculoskeletal: Positive for myalgias. Negative for arthralgias. Neurological: Negative for dizziness, weakness, light-headedness and headache. Objective Past Medical History: Diagnosis Date Hypothyroidism Past Surgical History: Procedure Laterality Date BREAST SURGERY CARDIAC VALVE REPLACEMENT HERNIA REPAIR TUBAL ABDOMINAL LIGATION No family history on file. Vital Signs BP 162/88 (BP Location: Left arm, Patient Position: Sitting, Cuff Size: Adult) Pulse 60 Temp 97??F (36.1 ??C) (Temporal) Resp 18 Ht 157.5 cm (62 ) Comment: patient reported Wt 77.7 kg (171lb 3.2 oz) SpO2 98% BMI 31.31 kg/m?? Estimated body mass index is 31.31 kg/m?? as calculated from the following: Height as of this encounter: 157.5 cm (62 ). Weight as of this encounter: 77.7 kg (171 lb 3.2 oz). Physical Exam Vitals reviewed. Constitutional: Appearance: Normal appearance. HENT: Right Ear: Tympanic membrane and ear canal normal. Left Ear: Tympanic membrane, ear canal and external ear normal. Eyes: Conjunctiva/sclera: Conjunctivae normal. Cardiovascular: Rate and Rhythm: Normal rate and regular rhythm. Pulses: Normal pulses. Heart sounds: Normal heart sounds. Pulmonary: Effort: Pulmonary effort is normal. Breath sounds: Normal breath sounds. Abdominal: Palpations: Abdomen is soft. Musculoskeletal: General: Normal range of motion. Skin: General: Skin is warm and dry. Neurological: Mental Status: She is alert and oriented to person, place, and time. POCT Results (if applicable): No results found for this or any previous visit. Assessment and Plan Diagnoses and all orders for this visit: 1. Muscle cramps (Primary) Assessment & Plan: presents today for nocturnal muscle cramps. Patient [...] does not take any daily supplements. Normal physicalexam -We will check electrolytes in office today. Will likely benefit from magnesium supplement for nocturnal muscle cramping. Also advised to cut back on Mountain Dew intake and implement more water to maintain hydration. Orders: - Comprehensive Metabolic Panel; Future - Magnesium; Future - Magnesium - Comprehensive Metabolic Panel 2. Primary hypertension Assessment & Plan: Blood pressure continues to exhibit excellent control on home log, her blood pressure is elevated in office today, 162/88. This is attributed to the fact that she forgot her medications yesterday andhas not taken medication this morning. -Continue lisinopril 10 mg once daily -Continue metoprolol XL 25 mg once daily -Advised to monitor blood pressure at home to ensure it is remaining well controlled at all times when she remembers to take her medication, also reinforced importance of med compliance Orders: - Comprehensive Metabolic Panel; Future - Magnesium; Future - Magnesium - Comprehensive Metabolic Panel Follow Up No follow-ups on file. Jo Ann Byrd APRN * Rebeca Green MA - 02/14/2023 10:15 AM EDT Venipuncture Blood Specimen Collection Venipuncture performed in left arm by Rebeca Green MA with good hemostasis. Patient tolerated the procedure well without complications. 02/14/23 Rebeca Green MA documented in this encounter Plan of Treatment Not on file documented as of this encounter Procedures Procedure Name Priority Date/Time Associated Diagnosis Comments MAGNESIUM Routine 02/14/2023 11:03 AM EDT Muscle cramps Primary hypertension COMPREHENSIVE METABOLIC PANEL Routine 02/14/2023 11:03 AM EDT Muscle cramps Primary hypertension documented in this encounter Results * Magnesium (02/14/2023 11:03 AM EDT) Magnesium 1.8 1.6 - 2.3 mg/dL [facility] Blood Structure of left upper limb / Unknown 02/14/2023 11:03 AM EDT 02/15/2023 Comment:Blood Release to pat i Syeda [facility] - 02/15/2023 9:07 AM EDT Performed at: ??01 - [facility] [address], [place], [place] ??[id number] Poundmaster: Braulio Lopez PhD, Phone: ??[phone] us Jo Ann Byrd APRN LAB BLOOD ORDERABLES Final Result [facility] [address] [place] [address], [place] [phone] [facility] [address] [place] [address], [place] [phone] * (ABNORMAL) Comprehensive Metabolic Panel (02/14/2023 11:03 AM EDT) Glucose 101(H) 70 - 99 mg/dL [facility] BUN 12 8 - 27 mg/dL [facility] Creatinine 0.99 0.57 - 1.00 mg/dL [facility] EGFR Result 61 >59 mL/min/1.7 3 [facility] BUN/Creatinine Ratio 12 12 - 28 [facility] Sodium 131(L) 134 - 144 mmol/L [facility] Potassium 4.3 3.5 - 5.2 mmol/L [facility] Chloride 96 96 - 106 mmol/L [facility] Total CO2 21 20 - 29 mmol/L [facility] Calcium 9.1 8.7 - 10.3 mg/dL [facility] Total Protein 6.9 6.0 - 8.5 g/dL [facility] Albumin 4.3 3.8 - 4.8 g/dL [facility] Globulin 2.6 1.5 - 4.5 g/dL [facility] A/G Ratio 1.7 1.2 - 2.2 [facility] Total Bilirubin 0.8 0.0 - 1.2 mg/dL [facility] Alkaline Phosphatase 96 44 - 121 IU/L [facility] AST (SGOT) 33 0 - 40 IU/L [facility] ALT (SGPT) 22 0 - 32 IU/L [facility] Blood Structure of left upper limb / Unknown 02/14/2023 11:03 AM EDT 02/15/2023 Comment:Blood Release to anila Landa [facility] - 02/15/2023 9:07 AM EDT Performed at: ??01 - [facility] [place] [address] [facility], [place], [place] [id number] Poundmaster: Braulio Lopez PhD, Phone: ??[phone] us Jo Ann Byrd APRN LAB BLOOD ORDERABLES Final Result [facility] [address] [place] [address], [place] [phone] [facility] [address] [place] [address], [place] [phone] documented in this encounter Visit Diagnoses Diagnosis Muscle cramps- Primary Primary hypertension Unspecified essential hypertension documented in this encounter Care Teams Heel Attacher Wood Relationship Specialty Start Date End Date Jo Ann Byrd, NOAH [address] [place] [address] PCP - General Family Medicine 12/30/22 documented as of this encounter
--- OUTSIDE RECORDS SUMMARY | 2024-04-29 10:05 | XMS_ITS | Encounter Summary ---
[facility] Address [address] [place] [address] Care Team Providers Care Electrical Engineering Technician Name Role Phone RochelleJo Ann aceves Yuliet ZAMORA Primary Care Provider [phone] Encounter Details Date Type Department Care Team (Latest Contact Info) Description 04/26/2023 11:15 AM EST Clinical Support [facility] [address] [place] [phone] Flu vaccine need (Primary Dx) Social History Tobacco Use Types [...] on file documented as of this encounter Progress Notes * Brandi Diaz MA - 04/26/2023 11:15 AM EST Patient had flu shot in right arm, no reaction to shot and waited shot time documented in this encounter Plan of Treatment Not on file documented as of this encounter Visit Diagnoses Diagnosis Flu vaccine need- Primary documented in this encounter Care Teams Electrical Engineering Technician Relationship Specialty Start Date End Date Jo Ann Byrd APRN [address] [place] [id number] PCP - General Family Medicine 12/30/22 documented as of this encounter
--- OUTSIDE RECORDS SUMMARY | 2024-04-29 10:05 | XMS_ITS | Encounter Summary ---
[facility] Address [address] [place] [address] Care Team Providers Care Cell Tower Climber Name Role Phone Jo Ann Byrd MOLASSES FEED MIXER Primary Care Provider [phone] Reason for Visit * Reason Onset Date Comments MEDICAL CONCERN 05/24/2023 Encounter Details Date Type Department Care Team (Late st Contact Info) Description 05/24/2023 Telephone [facility] [address] [place] [phone] Jo Ann Byrd, MOLASSES FEED MIXER [address] [place] [address] MEDICAL CONCERN Social History Tobacco Use Types Packs/Day Years [...] encounter Miscellaneous Notes * Telephone Encounter - Geri Gonzales RegSched Rep - 05/24/2023 3:05 PM EST Caller: Sharri Lawrence Relationship: PATIENT Best call back number: [phone] What is your medical concern? COUGHING How long has this issue been going on? 05/21/23 Is your provider already aware of this issue? NO Have you been treated for this issue? NO. TESTED NEGATIVE FOR STREP AT [facility] ON 05/23/23. IS BETWEEN INSURANCE PLANS CURRENTLY. GETTING NEW INSURANCE PLAN ON 05/29/23. CAN'T AFFORD TO COME INTO BE SEEN. PLEASE SEND COUGH MEDS IN TO [facility] IN [place]. PLEASE CALL PATIENT BACK TO ADVISE. THANK YOU documented in this encounter Plan of Treatment Not on file documented as of this encounter Visit Diagnoses Not on filedocumented in this encounter Care Teams Cell Tower Climber Relationship Specialty Start Date End Date Jo Ann Byrd APRN [address] [place], [place] [phone] PCP - General Family Medicine 12/30/22 documented as of this encounter
--- OUTSIDE RECORDS SUMMARY | 2024-04-29 10:05 | XMS_ITS | Encounter Summary ---
[facility] Address [address] [place] [address] Care Team Providers Care Automatic Pilot Mechanic Name Role Phone Jo Ann Byrd DATABASE SPECIALIST Primary Care Provider [phone] Reason for Visit * Reason Onset Date Comments Med Refill 01/30/2024 Encounter Details Date Type Department Care Team (Late st Contact Info) Description 01/30/2024 Telephone [facility] [address] [place] [phone] Jo Ann Byrd, DATABASE SPECIALIST [address] [place] [address] Med Refill Social History Tobacco Use Types Packs/Day Years [...] encounter Miscellaneous Notes * Telephone Encounter - Brandy Perez RegSched Rep - 01/30/2024 12:43 PM EDT Caller: Sharri Lawrence Relationship: Self Best call back number: [phone] Requested Prescriptions: Requested Prescriptions No prescriptions requested or ordered in this encounter NEVOTHRYOXINE SODIUM 75 MG Pharmacy where request should be sent: [address] [phone] [facility] [phone] FX Last office visit with prescribing clinician: 11/29/2023 Last telemedicine visit with prescribing clinician: Visit date not found Next office visit with prescribing clinician: Visit date not found Additional details provided by patient: THE PATIENT REQUESTED A MEDICATION THAT IS NOT ON HER MEDICATION LIST. Does the patient have less than a 3 day supply: [] Yes [x] No Would you like a call back once the refill request has been completed: [] Yes [] No If the office needs to give you a call back, can they leave a voicemail: [] Yes [] No Saleem Rivera 01/30/24 12:44 EDT documented in this encounter Plan of Treatment Not on file documented as of this encounter Visit Diagnoses Not on filedocumented in this encounter Care Teams Automatic Pilot Mechanic Relationship Specialty Start Date End Date Jo Ann Byrd APRN [address] [place] [address] PCP - General Family Medicine 12/30/22 documented as of this encounter
--- OUTSIDE RECORDS SUMMARY | 2024-04-29 10:05 | XMS_ITS | Encounter Summary ---
[facility] Address [address] [place] [address] Care Team Providers Care Functional Analyst Name Role Phone Jo Ann Byrd LUMBER MOVER Primary Care Provider [phone] Encounter Details Date Type Department Care Team (Late st Contact Info) Description 02/16/2023 Telephone [facility] [address] [place] [phone] Jo Ann Byrd, LUMBER MOVER [address] [place], [place] [id number] Social History Tobacco Use Types Packs/Day Years [...] Telephone Encounter - Brandi Diaz MA - 02/16/2023 11:13 AM EDT Called and spoke with patient and advised her lab results and she verbalized understanding * Telephone Encounter - Brandi Diaz MA - 02/16/2023 11:12 AM EDT ----- Message from Jo Ann Byrd APRN sent at 02/16/2023 8:19 AM EDT ----- Please let leena know I have reviewed her labs. Her sodium is a little low which could account for her leg cramps. If she is heavily restricting her salt intake she can liberalize a small amount which will help get her level up. She is safe to start taking an over the counter magnesium supplement to see if this helps with her leg cramps as well documented in this encounter Plan of Treatment Not on file documented as of this encounter Visit Diagnoses Not on filedocumented in this encounter Care Teams Functional Analyst Relationship Specialty Start Date End Date Jo Ann Byrd APRN [address] [place], [place] [phone] PCP - General Family Medicine 12/30/22 documented as of this encounter
--- OUTSIDE RECORDS SUMMARY | 2024-04-29 10:05 | XMS_ITS | Encounter Summary ---
[facility] [address] [place] [address] Care Team Providers Care Net Wpf Developer Name Role Phone Jo Ann Byrd SHUTTLE REPAIRER Primary Care Provider [phone] Reason for Visit * Reason Comments Establish Care Encounter Details Date Type Department Care Team (Late st Contact Info) Description 12/30/2022 2:45 PM EDT Office Visit [facility] [address] [place] [phone] Jo Ann Byrd, SHUTTLE REPAIRER [address] [place] [address] Acquired hypothyroidism (Primary Dx); Acute idiopathic gout of left foot; Primary hypertension; Diverticulitis; Interatrial septal defect Social History Tobacco Use Types Packs/Day Years [...] Sign Reading Time Taken Comments Blood Pressure 126/82 12/30/2022 2:52 PM EDT Pulse 58 12/30/2022 2:52 PM EDT Temperature 36.3 ??C (97.3 ??F) 12/30/2022 2:52 PM ED T Respiratory Rate - - Oxygen Saturation 98% 12/30/2022 2:52 PM EDT Inhaled Oxygen Concentration - - Weight 76.4 kg (168 lb 6.4 oz) 12/30/2022 2:52 P M EDT Height 157.5 cm (5' 2 ) 12/30/2022 2:52 PM EDT Body Mass Index 30.8 12/30/2022 2:52 PM EDT documented in this encounter Progress Notes * Jo Ann Byrd APRN - 01/02/2023 8:55 PM EDTAssociated Problem(s): Acquired hypothyroidism Well controlled on current levothyroxine dosing. -Continue levothyroxine 88mcg daily * Jo Ann Byrd APRN - 01/02/2023 8:51 PM EDTAssociated Problem(s): Interatrial septal defect Underwent [place] [address] Atkins * Jo Ann Byrd APRN - 01/02/2023 8:47 PM EDTAssociated Problem(s): Acute idiopathic gout of left foot No recent flares with daily allopurinol * Jo Ann Byrd APRN - 01/02/2023 8:45 PM EDTAssociated Problem(s): Primary hypertension Blood pressure exhibiting excellent control on current medications. -Continue lisinopril 10mg daily -Continue metoprolol 25mg daily * Jo Ann Byrd APRN - 12/30/2022 3:20 PM EDTAssociated Problem(s): Diverticulitis Jun 2022 patient underwent most recent colonoscopy with findings of diverticulitis noted. She reports exacerbation with intake of nuts and seeds. Followed by Dr. Steele * Jo Ann Byrd APRN - 12/30/2022 2:45 PM EDT Images from the original note were not included. Office Note Name: Sharri Lawrence : 1950 Chief Complaint Establish Care Subjective History of Present Illness: Sharri Lawrence is a 73 y.o. female who presents today to establish care with regular follow-up. She was followed by PCP Kye Zheng until his snf at which time she transferred care to anothergroup. She is now returning to my care today. She has health conditions including hypothyroid, htn,gout and diverticulitis. She also has history of intratrial septal defect with surgical repair in 2014. She has no complaints today. She does note flares of diverticulitis when eating nuts or seeds. BP is well controlled on current medications, 126/82 in office today. No recent issues with CP, SOB,palpitations or lower extremity edema. Last physical was March 2022. She has no complaints today. Review of Systems Constitutional: Negative for activity change and fatigue. HENT: Negative for dental problem and hearing loss. Eyes: Negative for blurred vision and double vision. Respiratory: Negative for cough, choking, chest tightness, shortness of breath and wheezing. Cardiovascular: Negative for chest pain, palpitations and leg swelling. Gastrointestinal: Negative for abdominal distention, abdominal pain, diarrhea, nausea and vomiting. Endocrine: Negative for polydipsia and polyuria. Genitourinary: Negative for decreased libido, difficulty urinating, dysuria, flank pain and hematuria. Musculoskeletal: Negative for arthralgias and myalgias. Skin: Negative for rash. Neurological: Negative for dizziness, weakness, light-headedness, numbness and headache. Hematological: Does not bruise/bleed easily. Psychiatric/Behavioral: Negative for sleep disturbance and depressed mood. The patient is not nervous/anxious. Objective Past Medical History: Diagnosis Date Hypothyroidism Past Surgical History: Procedure Laterality Date BREAST SURGERY CARDIAC VALVE REPLACEMENT HERNIA REPAIR TUBAL ABDOMINAL LIGATION History reviewed. No pertinent family history. Vital Signs BP 126/82 (BP Location: Left arm, Patient Position: Sitting, Cuff Size: Adult) Pulse 58 Temp 97.3 ??F (36.3 ??C) (Temporal) Ht 157.5 cm (62 ) Wt 76.4 kg (168 lb 6.4 oz) SpO2 98% BMI 30.80kg/m?? Estimated body mass index is 30.8 kg/m?? as calculated from the following: Height as of this encounter: 157.5 cm (62 ). Weight as of this encounter: 76.4 kg (168 lb 6.4 oz). Physical Exam Vitals reviewed. Constitutional: Appearance: Normal appearance. HENT: Head: Normocephalic and atraumatic. Right Ear: Tympanic membrane, ear canal and external ear normal. Left Ear: Tympanic membrane, ear canal and external ear normal. Nose: Nose normal. Mouth/Throat: Pharynx: Oropharynx is clear. Eyes: Conjunctiva/sclera: Conjunctivae normal. Cardiovascular: Rate and Rhythm: Normal rate and regular rhythm. Pulses: Normal pulses. Heart sounds: Normal heart sounds. Pulmonary: Effort: Pulmonary effort is normal. Breath sounds: Normal breath sounds. Abdominal: General: Bowel sounds are normal. Palpations: Abdomen is soft. Musculoskeletal: General: Normal range of motion. Cervical back: Normal range of motion and neck supple. Skin: General: Skin is warm. Capillary Refill: Capillary refill takes less than 2 seconds. Neurological: General: No focal deficit present. Mental Status: She is alert and oriented to person, place, and time. POCT Results (if applicable): No results found for this or any previous visit. Assessment and Plan Diagnoses and all orders for this visit: 1. Acquired hypothyroidism (Primary) Assessment & Plan: Well controlled on current levothyroxine dosing. -Continue levothyroxine 88mcg daily 2. Acute idiopathic gout of left foot Assessment & Plan: No recent flares with daily allopurinol 3. Primary hypertension Assessment & Plan: Blood pressure exhibiting excellent control on current medications. -Continue lisinopril 10mg daily -Continue metoprolol 25mg daily 4. Diverticulitis Assessment & Plan: Jun 2022 patient underwent most recent colonoscopy with findings of diverticulitis noted. She reports exacerbation with intake of nuts and seeds. Followed by Dr. Steele 5. Interatrial septal defect Assessment & Plan: Underwent surgical repair [place] [address] Atkins BMI is >= 30 and <35. (Class 1 Obesity). The following options were offered after discussion;: exercise counseling/recommendations and nutrition counseling/recommendations Vaccine Counseling: ???Discussed risks/benefits to vaccination, reviewed components of the vaccine, discussed VIS, discussed informed consent, informed consent obtained. Patient/Parent was allowed to accept or refuse vaccine. Questions answered to satisfactory state of patient/Parent. We reviewed typical age appropriate and seasonally appropriate vaccinations. Reviewed immunization history and updated state vaccination form as needed. Patient was counseled on COVID-19 Influenza Advanced Care Planning: Patient has an advance directive (not in EMR), copy requested. Follow Up No follow-ups on file. Jo Ann Byrd APRN documented in this encounter Plan of Treatment Not on file documented as of this encounter Visit Diagnoses Diagnosis Acquired hypothyroidism- Primary Unspecified hypothyroidism Acute idiopathic gout of left foot Primary hypertension Unspecified essential hypertension Diverticulitis Diverticulitis of colon (without mention of hemorrhage) Interatrial septal defect Ostium secundum type atrial septal defect documented in this encounter Care Teams Net Wpf Developer Relationship Specialty Start Date End Date Jo Ann Byrd APRN [address] [place] [address] PCP - General Family Medicine 12/30/22 documented as of this encounter
--- OUTSIDE RECORDS SUMMARY | 2024-04-29 10:05 | XMS_ITS | Encounter Summary ---
[facility] Address [address] [place] [address] Care Team Providers Care Sports Medicine Physician Name Role Phone Jo Ann Byrd TREE FELLER OPERATOR Primary Care Provider [phone] Encounter Details Date Type Department Care Team (Late st Contact Info) Description 09/25/2023 Telephone [facility] [address] [place] [phone] Jo Ann Byrd, TREE FELLER OPERATOR [address] [place], [place] [id number] Social History Tobacco Use Types Packs/Day Years [...] Telephone Encounter - Brandi Diaz MA - 09/25/2023 5:00 PM EDT Called and spoke with patient and advised her that the dexa was normal and she verbalized understanding * Telephone Encounter - Brandi Diaz MA - 09/25/2023 4:59 PM EDT ----- Message from Brandi Mcgovern sent at 09/25/2023 4:44 PM EDT ----- Pleasel let Sharri know her DEXA scan was normal documented in this encounter Plan of Treatment Not on file documented as of this encounter Visit Diagnoses Not on filedocumented in this encounter Care Teams Sports Medicine Physician Relationship Specialty Start Date End Date Jo Ann Byrd APRN [address] [place] [address] PCP - General Family Medicine 12/30/22 documented as of this encounter
--- OUTSIDE RECORDS SUMMARY | 2024-04-29 10:05 | XMS_ITS | Encounter Summary ---
[facility] Address [address] [place] [address] Care Team Providers Care Computer Terminal Operator Name Role Phone Jo Ann Byrd OPERATIONS SUPPORT MANAGER Primary Care Provider [phone] Reason for Visit * Reason Comments Abdominal Pain Encounter Details Date Type Department Care Team (Late st Contact Info) Description 04/17/2023 1:45 PM EST Office Visit [facility] [address] [place] [phone] Jo Ann Byrd APRN [address] [place] [address] Diverticulitis (Primary Dx); Primary hypertension Social History Tobacco [...] Sign Reading Time Taken Comments Blood Pressure 114/74 04/17/2023 1:46 PM EST Pulse 69 04/17/2023 1:46 PM EST Temperature 36.4 ??C (97.5 ??F) 04/17/2023 1:46 PM ES T Respiratory Rate 18 04/17/2023 1:46 PM EST Oxygen Saturation 98% 04/17/2023 1:46 PM EST Inhaled Oxygen Concentration - - Weight 77.6 kg (171 lb) 04/17/2023 1:46 PM EST Height 157.5 cm (5' 2 ) 04/17/2023 1:46 PM EST Body Mass Index 31.28 04/17/2023 1:46 PM EST documented in this encounter Progress Notes * Jo Ann Byrd APRN - 04/17/2023 3:03 PM ESTAssociated Problem(s): Primary hypertension Blood pressure exhibiting excellent control in office today, 114/74. -Continue lisinopril 10 mg -Continue metoprolol XL 25 mg daily * Jo Ann Byrd APRN - 04/17/2023 2:07 PM ESTAssociated Problem(s): Diverticulitis presents today for complaints of abdominal pain. Has longstanding history of diverticulitis, most recently confirmed on colonoscopy in June of this year. She can pinpoint foods that induce exacerbation which generally include nuts and seeds. She notes approximately 5 days ago developing significant abdominal discomfort after eating chili dogs at [facility]. She noted the pain to be bilateral [...] constipation will call office for further direction. * Jo Ann Byrd APRN - 04/17/2023 1:45 PM EST Images from the original note were not included. Office Note Name: Sharri Lawrence : 1950 Chief Complaint Abdominal Pain Subjective History of Present Illness: Sharri Lawrence is a 73 y.o. female who presents today for complaints of abdominal pain. Has longstanding history of diverticulitis, most recently confirmed on colonoscopy in June of this year. She can pinpoint foods that induce exacerbation which generally include nuts and seeds. She notes appr oximately 5 days ago developing significant abdominal discomfort after eating chili dogs at [employer]. She noted the pain to be bilateral [...] morning without any repeat dosing of Colace. Her blood pressure exhibiting excellent control in office today, 114/74. She has no further complaints or concerns today Review of Systems Constitutional: Positive for appetite change. Negative for fatigue. Respiratory: Negative for cough, choking, shortness of breath and wheezing. Cardiovascular: Negative for chest pain, palpitations and leg swelling. Gastrointestinal: Positive for abdominal pain and constipation. Negative for abdominal distention, blood in stool, diarrhea, nausea and vomiting. Musculoskeletal: Negative for arthralgias and myalgias. Neurological: Negative for dizziness, syncope, weakness, light-headedness and headache. Objective Past Medical History: Diagnosis Date Hypothyroidism Past Surgical History: Procedure Laterality Date BREAST SURGERY CARDIAC VALVE REPLACEMENT HERNIA REPAIR TUBAL ABDOMINAL LIGATION No family history on file. Vital Signs BP 114/74 (BP Location: Left arm, Patient Position: Sitting, Cuff Size: Adult) Pulse 69 Temp 97.5 ??F (36.4 ??C) (Temporal) Resp 18 Ht 157.5 cm (62 ) Wt 77.6 kg (171 lb) SpO2 98% BMI 31.28 kg/m?? Estimated body mass index is 31.28 kg/m?? as calculated from the following: Height as of this encounter: 157.5 cm (62 ). Weight as of this encounter: 77.6 kg (171 lb). Physical Exam Vitals reviewed. Constitutional: Appearance: Normal appearance. HENT: Head: Normocephalic and atraumatic. Right Ear: Tympanic membrane, ear canal and external ear normal. Left Ear: Tympanic membrane, ear canal and external ear normal. Cardiovascular: Rate and Rhythm: Normal rate and regular rhythm. Pulses: Normal pulses. Heart sounds: Normal heart sounds. Pulmonary: Effort: Pulmonary effort is normal. Breath sounds: Normal breath sounds. Abdominal: General: There is no distension. Palpations: There is no mass. Tenderness: There is abdominal tenderness. There is no guarding or rebound. Musculoskeletal: Cervical back: Neck supple. Skin: General: Skin is warm and dry. Neurological: Mental Status: She is alert and oriented to person, place, and time. Psychiatric: Mood and Affect: Mood normal. Behavior: Behavior normal. Thought Content: Thought content normal. Judgment: Judgment normal. POCT Results (if applicable): Results for orders placed or performed in visit on 02/14/23 Magnesium Specimen: Arm, Left; Blood Blood Release to ty Result Value Ref Range Magnesium 1.8 1.6 - 2.3 mg/dL Comprehensive Metabolic Panel Specimen: Arm, Left; Blood Blood Release to ty Result Value Ref Range Glucose 101 (H) 70 - 99 mg/dL BUN 12 8 - 27 mg/dL Creatinine 0.99 0.57 - 1.00 mg/dL EGFR Result 61 >59 mL/min/1.73 BUN/Creatinine Ratio 12 12 - 28 Sodium 131 (L) 134 - 144 mmol/L Potassium 4.3 3.5 - 5.2 mmol/L Chloride 96 96 - 106 mmol/L Total CO2 21 20 - 29 mmol/L Calcium 9.1 8.7 - 10.3 mg/dL Total Protein 6.9 6.0 - 8.5 g/dL Albumin 4.3 3.8 - 4.8 g/dL Globulin 2.6 1.5 - 4.5 g/dL A/G Ratio 1.7 1.2 - 2.2 Total Bilirubin 0.8 0.0 - 1.2 mg/dL Alkaline Phosphatase 96 44 - 121 IU/L AST (SGOT) 33 0 - 40 IU/L ALT (SGPT) 22 0 - 32 IU/L Assessment and Plan Diagnoses and all orders for this visit: 1. Diverticulitis (Primary) Assessment & Plan: presents today for complaints of abdominal pain. Has longstanding history of diverticulitis, most recently confirmed on colonoscopy in June of this year. She can pinpoint foods that induce exacerbation which generally include nuts and seeds. She notes approximately 5 days ago developing significant abdominal discomfort after eating chili dogs at [employer]. She noted the pain to be bilateral [...] constipation will call office for further direction. Orders: - ciprofloxacin (Cipro) 500 MG tablet; Take 1 tablet by mouth 2 (Two) Times a Day for 7 days. Dispense: 14 tablet; Refill: 0 2. Primary hypertension Assessment & Plan: Blood pressure exhibiting excellent control in office today, 114/74. -Continue lisinopril 10 mg -Continue metoprolol XL 25 mg daily Follow Up No follow-ups on file. Jo Ann Byrd APRN documented in this encounter Plan of Treatment Not on file documented as of this encounter Visit Diagnoses Diagnosis Diverticulitis- Primary Diverticulitis of colon (without mention of hemorrhage) Primary hypertension Unspecified essential hypertension documented in this encounter Care Teams Computer Terminal Operator Relationship Specialty Start Date End Date Jo Ann Byrd APRN [address] [place], [place] [id number] PCP - General Family Medicine 12/30/22 documented as of this encounter
--- OUTSIDE RECORDS SUMMARY | 2024-04-29 10:05 | XMS_ITS | Encounter Summary ---
Author Organization [facility] Address [address] [place] [address] Care Team Providers Care Slotter Operator Name Role Phone Jo Ann Byrd APRN Primary Care Provider [phone] Reason for Visit * Reason Onset Date Comments Med Refill 12/18/2023 Encounter Details Date Type Department Care Team (Late st Contact Info) Description 12/18/2023 Refill [facility] [address] [place] [phone] Jo Ann Byrd APRN [address] [place] [id number] Social History Tobacco Use Types Packs/Day [...] on filedocumented in this encounter Care Teams Slotter Operator Relationship Specialty Start Date End Date Jo Ann Byrd APRN [address] [place] [id number] PCP - General Family Medicine 12/30/22 documented as of this encounter
--- OUTSIDE RECORDS SUMMARY | 2024-04-29 10:05 | XMS_ITS | Encounter Summary ---
Author Organization [facility] Address [address] [place] [address] Care Team Providers Care Band Master Name Role Phone Jo Ann Byrd Yuliet ZAMORA Primary Care Provider [phone] Reason for Visit * Reason Comments Labs Only Encounter Details Date Type Department Care Team (Latest Contact Info) Description 12/22/2023 11:15 AM EDT Clinical Support [facility] [address] [place] [phone] Acquired hypothyroidism (Primary Dx) Social History Tobacco Use Types [...] as of this encounter Progress Notes * Rebeca Green MA - 12/22/2023 11:15 AM EDT Venipuncture Blood Specimen Collection Venipuncture performed in left arm by Rebeca Green MA with good hemostasis. Patient tolerated the procedure well without complications. 12/22/23 Rebeca Green MA documented in this encounter Plan of Treatment Not on file documented as of this encounter Procedures Procedure Name Priority Date/Time Associated Diagnosis Comments TSH RFX ON ABNORMAL TO FREE T4 Routine 12/22/2023 11:21 AM EDT Acquired hypothyroidism CONV T4F Routine 12/22/2023 11:21 AM EDT documented in this encounter Results * T4F (12/22/2023 11:21 AM EDT) Free T4 1.10 0.82 - 1.77 ng/dL [facility] 12/22/2023 11:2 1 AM EDT 12/22/2023 Comment:Blood Release to pat i Narrative [facility] (AMBULATORY) - 12/23/2023 10:07 AM EDT Performed at: ??01 - [facility] ??[id number] Photonics Technician: Braulio Lopez PhD, Phone: ??[phone] Jo Ann Byrd APRN LAB BLOOD ORDERABLES Final Result [facility] [employer] [facility] (AMBULATORY) [address] [place] [address], [place] [phone] [facility] [address] [place] [address], [place] [phone] * (ABNORMAL) TSH Rfx On Abnormal To Free T4 (12/22/2023 11:21 AM EDT) TSH 4.710(H) 0.450 - 4.500 uIU/mL [facility] 12/22/2023 11:2 1 AM EDT 12/22/2023 Comment:Blood Release to pat i Narrative [facility] (AMBULATORY) - 12/23/2023 10:07 AM EDT Performed at: ??01 - [facility] [address] ??[id number] Photonics Technician: Braulio Lopez PhD, Phone: ??[phone] Jo Ann Byrd APRN LAB BLOOD ORDERABLES Final Result [facility] (AMBULATORY) [address] [place] [address], [place] [phone] [facility] [address] [place] [address], documented in this encounter Visit Diagnoses Diagnosis Acquired hypothyroidism- Primary Unspecified hypothyroidism documented in this encounter Care Teams Band Master Relationship Specialty Start Date End Date Jo nAn Byrd APRN [address] [place] [address] PCP - General Family Medicine 12/30/22 documented as of this encounter
[2024-04-29 10:32] LABS: Basophils % 1.1 % (0.1-2.0); Eosinophils # 0.1 K/mm3 (0.0-0.4); Eosinophils % 2.2 % (0.1-12.0); Hematocrit 42.8 % (37.0-47.0); Hemoglobin 14.4 g/dL (12.2-16.2); Lymphocytes # 1.2 K/mm3 (0.7-4.5); Lymphocytes % 37.1 % (10-50); Mean Corpuscular HGB Conc 33.5 g/dL (31.8-35.4); Mean Corpuscular Hemoglobin 32.2 pg (27.0-31.2); Mean Corpuscular Volume 95.9 fl (81-99); Mean Platelet Volume 8.4 fl (7.4-10.4); Monocytes # 0.4 K/mm3 (0.1-1.0); Monocytes % 11.3 % (1.7-9.3); Neutrophils # 1.5 K/mm3 (1.8-7.8); Neutrophils % 48.4 % (37.0-80.0); Platelet Count 145 K/mm3 (142-424); Red Blood Count 4.46 M/mm3 (4.20-5.40); Red Cell Distribution Width 14.3 % (11.5-17.5); White Blood Count 3.1 K/mm3 (4.8-10.8)
[2024-04-29 11:34] LABS: Alanine Aminotransferase 26 U/L (12-78); Albumin Level 4.1 g/dl (3.5-5.0); Alkaline Phosphatase 77 U/L (38-126); Aspartate Amino Transferase 43 U/L (14-36); Bilirubin,Direct 0.4 mg/dl (0.0-0.4); Bilirubin,Indirect 0.6 mg/dL (0.0-0.9); Bilirubin,Unconjugated 0.6 mg/dL (0.0-1.1); Blood Urea Nitrogen 16 mg/dl (7-17); Calcium 9.3 mg/dl (8.4-10.2); Carbon Dioxide 26 mmol/L (22.0-30.0); Chloride 105 mmol/L (98-107); Chol/HDL Ratio 2.9 (1-3.5); Cholesterol 144 mg/dl (140-200); Estimated Glomerular Filt Rate 55 ml/min (>60); GFR (African American) 66 ML/MIN (>60); Glucose 82 mg/dl (74-100); HDL Cholesterol 49 mg/dl (40-60); Sodium 138 mmol/L (136-145); Triglycerides 121 mg/dl (30-150); VLDL Cholesterol 24 mg/dL (0-40)
[2024-04-29 11:45] LABS: Direct LDL Cholesterol 73.67 mg/dL (100-129)
[2024-04-29 11:50] LABS: Free T4 (Free Thyroxine) 1.54 ng/dl (0.78-2.19)
[2024-04-29 12:05] LABS: Thyroid Stimulating Hormone 1.62 uIU/mL (0.465-4.68)
== END 2024-04-29 23:59 | disposition home or self-care (01) ==
LOC: LAB 10:03
PROVIDERS: PCP Nurse Practitioner; Visit Provider Nurse Practitioner Family
DX: R06.09 Other forms of dyspnea (principal); I10 Essential (primary) hypertension; R53.83 Other fatigue
CPT/HCPCS: 36415; 80048; 80061; 80076; 84439; 84443; 85025

== ENCOUNTER 2024-10-23 12:28 | Day surgery (SDC) | payer MEDICARE, SELFPAY ==
[2024-10-18 13:41] VITALS: BMI 31.8
[2024-10-23] MEDS: LACTATED RINGERS 1000ML 1,000 ML 50 ML IV (12:19)
[2024-10-23 12:57] VITALS: BP 148/87; PULSE 58; RESP 18; TEMP 36.3; O2SAT 100
[2024-10-23 14:30] VITALS: BP 149/80; PULSE 61; RESP 16; TEMP 36.7; O2SAT 100
[2024-10-23 14:40] VITALS: BP 145/77; PULSE 62; RESP 16; O2SAT 100
[2024-10-23 14:50] VITALS: BP 158/68; PULSE 64; RESP 18; O2SAT 98
[2024-10-23 15:00] VITALS: BP 157/84; PULSE 64; RESP 18; O2SAT 100
--- NOTE | 2024-10-23 18:54 | EXP.HP ---
History of Present Illness *Admission Date: 10/23/24 *Reason for visit:: Bloating/dyspepsia and dysphagia *History of present illness: Mrs. Lawrence is a 74-year-old female who is here for longstanding digestive difficulties. She has seen me in the remote past and I have done 2 prior endoscopies with esophageal dilation. The patient reports now irregularity with alternating diarrhea and constipation. She has incomplete defecation with excessive wiping. She has marked gassiness and bloating and often does get vagal symptoms when she has a bowel movement. She has been on a probiotic for the last 2 to 3 months and prior to this was having some mucus with her bowel movements. This did help with her symptoms somewhat and her mucus in stools resolved. She reports no rectal bleeding. She does have upper digestive symptoms with intermittent nausea and heartburn. She does get pain with her bowel movements and reports epigastric abdominal discomfort. She reports some belching and has had early satiety and some nausea. She also reports some choking and intermittent dysphagia. The patient does state that she tried to contact me within the last couple years but the office told her that I was retiring and she did go to Dr. Teddy lafleur and had a colonoscopy less than 2 years ago. She was told that this was normal. [facility] Disclaimer: The information contained in this section may have been updated after the patient was seen, as this information can be updated by other users. Medical History (Updated 10/23/24 @ 18:55 by Toni Astorga II, MD) History of COVID-19 History of stroke History of gastroesophageal reflux (GERD) Hypothyroid Hypertension Edema Cryptogenic stroke PFO (patent foramen ovale) Hypertension Fatigue Dyspnea Surgical History (Updated 10/23/24 @ 13:07 by Keily Kurtz RN) History of appendectomy Hx of colonoscopy History of esophagogastroduodenoscopy History of hysterectomy History of cholecystectomy H/O varicose vein stripping H/O breast surgery S/P patent foramen ovale closure Family History (Updated 10/23/24 @ 13:07 by Keily Kurtz RN) Other Heart attack Social History (Updated 10/23/24 @ 13:07 by Keily Kurtz RN) Smoking Status: Never smoker alcohol intake: never current occupational status: retired Travel in the last 8 weeks?: None caffeine: No Have you lived/traveled outside [place] in past 30 days?: No Contact w/someone who lives/traveled outside US past 30 days?: No Exposure to someone with infectious disease in past 14 days?: No Do you have a fever (greater than 100.4 F or 38 C)?: No Have you tested positive for COVID-19?: No Exposed to someone with COVID-19 in past 14 days?: No Do you have a sore throat?: No Do you have a cough?: No Do you have any weakness?: No Are you experiencing any nausea/vomitting?: No Do you have any diarrhea?: No Are you experiencing any unusual bleeding?: No Do you have any muscle aches/pain?: No Do you have any abdominal pain?: No Are you experiencing loss of taste or smell?: No Other Medical History Have you received the Pneumonia Vaccine: No Review of Systems Review of Systems Review of systems (narrative): Negative *Cardiovascular Comments: Negative *Gastrointestinal Comments: Negative *Genitourinary Comments: Negative *Musculoskeletal Comments: Negative *Neurologic Comments: Negative Meds Home Medications and Allergies Home Medications ?Medication ?Instructions ?Recorded ?Confirmed ?Type allopurinol 300 mg tablet 300 mg PO DAILY 06/21/23 10/23/24 History aspirin 81 mg chewable tablet 81 mg PO DAILY 06/21/23 10/23/24 History levothyroxine 75 mcg tablet 75 mcg PO DAILY 06/21/23 10/23/24 History (Euthyrox) lisinopril 10 mg tablet 10 mg PO DAILY 06/21/23 10/23/24 History metoprolol succinate 25 mg 25 mg PO DAILY 06/21/23 10/23/24 History tablet,extended release 24 hr pantoprazole 40 mg tablet,delayed 40 mg PO DAILY 06/21/23 10/23/24 History release potassium chloride 20 mEq 20 meq PO DAILY 06/21/23 10/23/24 History tablet,extended release New Prescriptions to Start Prescriptions: Allergies Allergy/AdvReac Type Severity Reaction Status Date / Time latex Allergy Unknown BURN Verified 10/23/24 12:54 Exam Data for Last 24 hours Vital signs and Labs for Last 24 Hours: Temp Pulse Resp BP Pulse Ox O2 Del Method 97.4 F L 58 L 18 148/87 H 100 Room Air 10/23/24 12:57 10/23/24 12:57 10/23/24 12:57 10/23/24 12:57 10/23/24 12:57 10/23/24 12:57 *Routine HEENT Exam Head: Present normocephalic Eye: Present EOMI and PERRL ENT: Present mucous membranes moist *Routine Neck Exam Neck: Present supple *Routine Respiratory Exam Respiratory: Present CTA bilaterally *Routine Cardiovascular Exam Cardiovascular: Present RRR *Routine Abdominal Exam Abdominal: Present soft and normoactive bowel sounds; Absent tenderness *Routine Rectal Exam Rectal:: deferred *Routine Genitalia Exam Genitalia:: deferred *Routine Extremities Exam Extremities: Absent cyanosis, clubbing or edema *Routine Skin Exam Skin: Present warm; Absent rash *Routine Neurological Exam Neurological: Present alert and oriented X3 Assessment and Plan *Assessment and plan (1) Dysphagia: Status: Acute Category: Medical Code(s): R13.10 - Dysphagia, unspecified (2) Bloating: Status: Acute Category: Medical Code(s): R14.0 - Abdominal distension (gaseous) (3) Functional dyspepsia: Status: Acute Category: Medical Code(s): K30 - Functional dyspepsia Plan A/P: 1. Bloating, dysphagia and dyspepsia is the preprocedural diagnosis. The patient will be anesthetized/sedated using MAC sedation. The patient has been seen and examined. Cardiac and lung assessment prior to the examination is stable. Proceed with planned diagnostic EGD.
--- NOTE | 2024-10-23 21:45 | HMH.PROCNOTE ---
[facility] Procedure Note Date: 10/23/24 Time: 21:50 Procedure Note:: Upper Endoscopy Procedure Report: Esophagogastroduodenoscopy with cold biopsies Endoscopost: Toni Astorga II, MD Referring Physician: Jo Ann Byrd Date of Procedure: October 23, 2024 Equipment: Olympus GIF 190 standard upper endoscope Sedation: MAC sedation Indications: Mrs. Lawrence is a 74-year-old female who is here for diagnostic upper endoscopy. She has had longstanding digestive difficulties. She has seen me in the remote past and I have done 2 prior endoscopies with esophageal dilation. The patient reports now irregularity with alternating diarrhea and constipation. She has incomplete defecation with excessive wiping. She has marked gassiness and bloating and often does get vagal symptoms when she has a bowel movement. She has been on a probiotic for the last 2 to 3 months and prior to this was having some mucus with her bowel movements. This did help with her symptoms somewhat and her mucus in stools resolved. She reports no rectal bleeding. She does have upper digestive symptoms with intermittent nausea and heartburn. She does get pain with her bowel movements and reports epigastric abdominal discomfort. She reports some belching and has had early satiety and some nausea. She also reports some choking and intermittent dysphagia. The patient does state that she tried to contact me within the last couple years but the office told her that I was retiring and she did go to Dr. Teddy lafleur and had a colonoscopy less than 2 years ago. She was told that this was normal. Procedure: Prior to the procedure, a history and physical exam was performed, and patient's medications and allergies were reviewed. The risks, benefits and alternatives of the sedation and procedure were discussed with the patient. All questions were answered and informed consent was obtained. The patient was brought to the procedure room. Patient identification and proposed procedure were verified by the physician and the nurse. The patient was placed in a left lateral decubitus position and the scope was passed under direct vision. Throughout the procedure, the patient's blood pressure, pulse, and oxygen saturations were monitored continuously. The upper GI endoscopy was accomplished without difficulty. The patient tolerated the procedure well. Findings: The scope was passed directly into the upper esophagus and advanced to the fourth portion of duodenum and proximal jejunum. Cold biopsies were taken x 4 of the proximal jejunum including disaccharidase assay. The proximal jejunum, post bulbar duodenum, ampulla and duodenal bulb were normal with normal mucosa and conniventes. The scope was withdrawn through a normal duodenal bulb and pylorus into the stomach. There was moderate to marked bile reflux with moderate linear reactive gastropathy of the antrum and body. There was moderate atrophy of the proximal stomach and fundus. Cold biopsies were taken from the proximal stomach to rule out intestinal metaplasia. Upon retroflexion there was a very small sliding 1 to 2 cm hiatal hernia. The scope was then withdrawn into the esophagus. There was a single tongue of salmon-colored mucosa that was biopsied to rule out intestinal metaplasia/Ordoñez's. There was no evidence of reflux esophagitis or Schatzki's ring. There was marked esophageal dysmotility with tertiary contractions. The entire esophagus was dilated to 60 [place]/20 mm with a TTS hydrostatic balloon there was some resistance at the cricopharyngeus. Remainder of the esophageal mucosa was normal. Impression: 1. Cricopharyngeal spasm status post dilation to 20 mm 2. Nonerosive GERD with moderate esophageal dysmotility with very small sliding 1 to 2 cm sliding hernia 3. Single tongue of salmon-colored mucosa?rule out short segment Ordoñez's esophagus 4. Moderate bile reflux with moderate nuclear reactive gastropathy and nuclear/body and chronic atrophic gastritis proximal stomach/fundus Plan: I will follow-up the biopsies. The patient does have functional dyspepsia. I do feel that most of her symptoms of reflux and dyspepsia are related to and driven by lower intestinal gas pressure gradients/high gas pressure buildup resulting in backflow of bile and peptic fluid from the duodenum into the stomach (duodenal reflux). This gas production (carbon dioxide, hydrogen, methane, etc.) from the lower intestinal tract is the byproduct of colonic bacterial fermentation. This colonic fermentation occurs when there is more carbohydrate (dietary starches, sugars and high residue plant fiber) substrate that does not get digested (in the middle or small intestine) or occurs when there is colonic fecal buildup and colonic bacterial overgrowth. This indeed leads to bloating and the gas pressure buildup with gas pressure gradients that do drive backflow and dyspepsia. I will place you on a fiber bowel regimen (combined MiraLAX this Konsyl mix together). I have also recommended Iberogast twice daily. Given her proximal gastric atrophy, she most likely has achlorhydria and would not benefit from PPI therapy. I will check the disaccharidase assay and if normal would consider adding broad digestive enzyme. I will have her follow-up with me in 3 months with Mee HALL
--- NOTE | 2024-10-24 08:12 | P.PNANES_ITS ---
[facility] Disclaimer: The information contained in this section may have been updated after the patient was seen, as this information can be updated by other users. Medical History (Updated 10/23/24 @ 18:55 by Toni Astorga II, MD) History of COVID-19 History of stroke History of gastroesophageal reflux (GERD) Hypothyroid Hypertension Edema Cryptogenic stroke PFO (patent foramen ovale) Hypertension Fatigue Dyspnea Surgical History (Updated 10/23/24 @ 13:07 by Keily Kurtz RN) History of appendectomy Hx of colonoscopy History of esophagogastroduodenoscopy History of hysterectomy History of cholecystectomy H/O varicose vein stripping H/O breast surgery S/P patent foramen ovale closure Family History (Updated 10/23/24 @ 13:07 by Keily Kurtz RN) Other Heart attack Social History (Updated 10/23/24 @ 13:07 by Keily Kurtz RN) Smoking Status: Never smoker alcohol intake: never substance use type: denies use current occupational status: retired Travel in the last 8 weeks?: None caffeine: No [facility] Anesthesia Checklist Patient Identification Patient Identification: Arm Band and Verbal (Name & ) Structural Data Admitted From: Emergency Dept Planned Operative Procedure/s: EGD Verified Documents: Surgical Consent NPO Status Verified Time NPO: [id number] Additional verifications Anesthesia Reactions: No Airway Assessment Mallampati Score:: Class II Dentition: Good Dentition Neurological Assessment Level of Consciousness: Awake, Alert and Appropriate Anesthesia Plan Anesthesia Plan: Verified Anesthesia Type: MAC Preoperative Comments Pre-Operative Comments: Late documentation d/t meditech system down at time of procedure
[2024-10-29 16:12] LABS: Disclaimer Notes (.); Interpretation Notes (.); Lactase 50.54 (>/= 14.0); Maltase 275.85 (>/= 110.0); Palatinase 15.75 (>/= 8.5); Reference Notes (.); Sucrase 63.5 (>/= 25.0)
== END 2024-10-23 15:16 | disposition home or self-care (01) ==
PROVIDERS: PCP Nurse Practitioner; Visit Provider Internal Medicine Gastroenterology
PROC: 0DJ08ZZ Inspection of Upper Intestinal Tract, Via Natural or Artificial Opening Endoscopic (ICD-10-PCS; principal; 2024-10-23 14:00)
DX: K21.9 Gastro-esophageal reflux disease without esophagitis (principal); K44.9 Diaphragmatic hernia without obstruction or gangrene; K29.40 Chronic atrophic gastritis without bleeding; K30 Functional dyspepsia; R13.10 Dysphagia, unspecified; R14.0 Abdominal distension (gaseous); K22.4 Dyskinesia of esophagus; I10 Essential (primary) hypertension; E03.9 Hypothyroidism, unspecified; Z91.040 Latex allergy status; Z79.899 Other long term (current) drug therapy; Z79.82 Long term (current) use of aspirin; Z86.73 Personal history of transient ischemic attack (TIA), and cerebral infarction without residual deficits; Z79.890 Hormone replacement therapy; Z90.49 Acquired absence of other specified parts of digestive tract
CPT/HCPCS: 43239; 43249; 82657; 88305; 88342; C1726; J7120